=== PATIENT | male | born 1960 | race Caucasian/White ===

== ENCOUNTER 2020-06-23 02:34 | Inpatient (IN) | payer MEDICARE, SELFPAY ==
[2020-06-23] VITALS (55 sets, daily range): BP systolic 92–139; BP diastolic 50–85; PULSE 79–120; RESP 12–27; TEMP 36.9–37.4; O2SAT 89–99; BMI 35.5
--- NOTE | 2020-06-23 02:45 | XR_ITS ---
WS: [id number] XR chest 1V portable [id number] REASON FOR EXAM: Weakness FINDINGS: Moderate tortuosity and ectasia thoracic aorta. Cardiac enlargement. No active pulmonary parenchymal or pleural disease. Degenerative spondylosis in the mid and lower thoracic spine. XR/XR chest 1V portable [id number] IMPRESSION: No acute chest abnormality. Cardiomegaly and tortuous ectatic aorta.
--- NOTE | 2020-06-23 02:46 | ECG_ITS ---
[facility] Test Date: 2020-06-23 Pat Name: Renaldo Michel Department: Room: Gender: Male Plastic Surgery Nurse: : 1960 Requested By: Raven Mccullough Order Number: [id number] Arvind MD: CECI VALENCIA Measurements Intervals [place] Rate: 104 P: 16 SC: 124 QRS: 20 QRSD: 82 T: 66 QT: 347 QTc: 457 Interpretive Statements SINUS TACHYCARDIA ABNORMAL RHYTHM ECG Compared to ECG 04/18/2016 17:46:24 Sinus rhythm no longer present Electronically Signed On 06-23-2020 19:28:59 TEAM PSYCHOLOGIST by CECI VALENCIA [id number]
[2020-06-23] MEDS: famotidine 20 mg/2 mL INJ 40 MG IVP (03:26)
[2020-06-23] MEDS: ondansetron 2 mg/ML SDV 2 mL 4 MG IVP (03:29)
[2020-06-23] MEDS: pantoprazole 40 mg SDV 80 MG IVP (03:32)
[2020-06-23 03:44] LABS: Basophils # 0.1 10^3/uL (0.0-0.1); Basophils % 0.7 %; Eosinophils # 0.1 10^3/uL (0.0-0.8); Eosinophils % 0.4 %; Hematocrit 40.2 % (42.0-52.0); Hemoglobin 13.4 g/dL (11.7-16.6); Lymphocytes # 2.2 10^3/uL (0.8-4.8); Lymphocytes % 15.3 %; Mean Corpuscular HGB Conc 33.3 g/dL (30.0-36.0); Mean Corpuscular Hemoglobin 31.2 pg (28.0-34.0); Mean Corpuscular Volume 93.5 fL (80-94); Mean Platelet Volume 10.5 fL (7.4-10.4); Monocytes # 1.8 10^3/uL (0.2-0.9); Monocytes % 12.6 %; Neutrophils # 9.85 10^3/uL (1.8-7.7); Neutrophils % 70.3 %; Nucleated Red Blood Cells % 0 %; Platelet Count 356 10^3/cmm (130-400); Red Cell Distribution Width 17.3 % (12.1-15.1)
[2020-06-23 03:56] LABS: H. Pylori IgG Antibody Negative (Negative)
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
[2020-06-23 04:00] LABS: INR 1.46 (0.8-1.2)
[2020-06-23 04:01] LABS: Partial Thromboplastin Time 32.8 SECONDS (23.9-36.7)
[2020-06-23 04:04] LABS: Alanine Aminotransferase 29 U/L (0-41); Albumin Level 3.1 g/dL (3.5-5.2); Alkaline Phosphatase 233 IU/L (40-130); Anion Gap 17.3 (5-19); Aspartate Amino Transferase 61 U/L (0-40); Blood Urea Nitrogen 10 mg/dL (8-23); Calcium 8.4 mg/dL (8.5-10.5); Carbon Dioxide 25 mmol/L (22-29); Chloride 100 mmol/L (98-107); Creatine Phosphokinase 57 U/L (39-308); Globulin 3.1 g/dL (1.3-4.6); Glucose 133 mg/dL (65-115); Lipase 14 U/L (13-60); Osmolality Calculated 285 mOsm/kg (285-295); Potassium 5.3 mmol/L (3.5-5.1); Sodium 137 mmol/L (136-145); Total Bilirubin 1.4 mg/dL (0.15-1.2); Total Protein 6.2 g/dL (6.6-8.7)
[2020-06-23 04:06] LABS: Troponin(5th) Baseline 9 ng/L (0-15)
[2020-06-23 04:11] LABS: Gastricult Occult Blood Positive (Negative)
[2020-06-23] MEDS: iohexol 300 mg/mL 100 mL Btl IV (04:37)
[2020-06-23 04:46] LABS: Gastricult Occult PH 6.5 PH (1.5-3.5)
--- NOTE | 2020-06-23 04:46 | ECG_ITS ---
[facility] Test Date: 2020-06-23 Pat Name: Renaldo Michel Department: Room: Gender: Male Access Representative: : 1960 Requested By: Raven Mccullough Order Number: [id number] Arvind MD: CECI VALENCIA Measurements Intervals [place] Rate: 100 P: 81 GA: 152 QRS: 33 QRSD: 80 T: 53 QT: 351 QTc: 453 Interpretive Statements SINUS TACHYCARDIA ABNORMAL RHYTHM ECG Compared to ECG 06/23/2020 03:36:16 No significant changes Electronically Signed On 06-23-2020 19:33:15 GROUND SUPPORT EQUIPMENT FITTER by CECI VALENCIA [id number]
[2020-06-23] MEDS: cefTRIAXone 1,000 MG in sodium chloride 0.9% (plus) 50 ML 100 MG IV (05:23)
[2020-06-23] MEDS: piperacillin-tazobactam 3.375 GM in sodium chloride 0.9% (plus) 50 ML IV ×2 (05:26→20:42)
[2020-06-23] MEDS: pantoprazole 40 MG in sodium chloride 0.9% (plus) 100 ML 20 MG IV (05:36)
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
--- NOTE | 2020-06-23 06:22 | PM.HP ---
Providers/Chief Complaint Primary Care Provider: Travis Tracy DO Chief Complaint: vomiting blood History of Present Illness Renaldo Michel is a 59 year old male with a past medical history of hypertension, chronic alcoholism, liver cirrhosis, sleep apnea, tobacco abuse, COPD who presents to [facility] due to complaints of coffee-ground emesis and black tarry stools. Patient tells me that he is retired, he lives with his , he forgets the days as he is enjoying snf, he likes to drink, can drink more than 4 beer in 1 sitting, has had a hospitalization in April 2016 for alcohol intoxication. He does have radiographic evidence of alcoholic steatohepatitis with possible early cirrhosis, denies a history of esophageal varices, denies a history of ascites, he does state that his primary care provider referred him to a health services director at one point, however he failed to follow-up. Patient tells me that yesterday evening, he was getting ready to go to the shower, when he had an episode of coffee-ground emesis with black tarry stools. Denies lightheadedness, denies dizziness, denies chest pain, denies palpitations, denies presyncope or syncope. Patient did not want to come to the emergency room, however his who worked in [employer], advised him to come to [facility]. Here at [facility] patient had one episode of coffee-ground emesis, he is Gastroccult positive, blood pressure 110/58, has sinus tachycardia heart rate 108, on 3 L nasal cannula, no repeat episodes of coffee-ground emesis, patient has no particular complaints, abdomen is distended, feels tight. CT scan of his abdomen showed few gastric varices, no splenomegaly, portal vein is patent, splenic vein is patent, liver shows severe fatty change, CT scan did have incidental finding of hydrops of the appendix. Findings were discussed with Dr. Kennedy, who agreed to consult, will see the patient for upper GI bleed. Given his alcoholism, I am concerned for the possibility of variceal bleed, although he denies any dark blood, it is mainly black and tarry, seems like it is gastric in origin, or gastric ulcer, but given his alcoholism I am concerned for the possibility of variceal bleed. Currently on a Protonix drip, getting normal saline. Review of Systems Const: Denies: fever(s), chills, fatigue or malaise Eyes: Denies: change in vision or blurry vision ENMT: Denies: nasal congestion Resp: Denies: dyspnea, productive cough, non-productive cough or wheezing GI: Reports: abdominal pain, vomiting, coffee ground emesis and melena; Denies: nausea, diarrhea, constipation or hematochezia : Denies: flank pain, difficulty urinating, dysuria or urinary frequency Musc: Denies: neck pain or back pain Skin/Breast: Denies: rash Neuro: Denies: headache(s), dizziness or vertigo Psych: Denies: anxiety or depression Endo: Denies: polyuria or polydipsia Medications/Allergies Home Medications Medication Instructions Recorded Confirmed Last Taken Type potassium chloride 20 mEq 20 meq PO BID #180 tab 10/20/19 Unknown Rx tablet,extended release spironolactone 100 mg tablet 100 mg PO QAM #90 tab 10/20/19 Unknown Rx tamsulosin 0.4 mg capsule 0.4 mg PO DAILY #90 cap 10/20/19 Unknown Rx Allergies Allergy/AdvReac Type Severity Reaction Status Date / Time No Known Allergies Allergy Verified 10/20/19 10:54 PFSH Acute PFSH: Medical History (Updated 06/23/20 @ 06:29 by Jasiel Ramírez MD) Alcoholism Arthritis COPD (chronic obstructive pulmonary disease) Hypertension Liver cirrhosis EDITH (obstructive sleep apnea) Polysubstance abuse Surgical History H/O bilateral hip replacements Hx of exploratory laparotomy Family History (Updated 06/23/20 @ 06:28 by Jasiel Ramírez MD) Other Adopted Social History (Updated 06/23/20 @ 06:28 by Jasiel Ramírez MD) Smoking and tobacco status: current every day smoker Alcohol intake: current Alcohol intake frequency: 3 or more drinks per day Alcohol type: beer Substance/Drug Use: never Vitals/I&O/Wt Last Vital Signs Temp 98.4 F 06/23/20 02:34 Pulse 108 H 06/23/20 05:30 Resp 20 H 06/23/20 05:30 BP 110/58 06/23/20 05:30 Pulse Ox 98 06/23/20 05:30 Weight last 48 hrs Weight 99.79 kg Physical Exam Const: COMMON NORMALS: no acute distress and patient oriented x3 GENERAL APPEARANCE: cooperative and comfortable HENMT: COMMON NORMALS: normocephalic HEAD & SCALP: normocephalic Eye: COMMON NORMALS: Equal, round and reactive pupils present and EOMs intact bilaterally GENERAL EYE: appearance normal, both eyes and all related structures PUPIL: Yes Equal, round and reactive pupils present Neck/C-Spine: COMMON NORMALS: full ROM, no lymphadenopathy, no JVD and Thyroid normal THYROID: Thyroid normal Lymph: LYMPHATIC: no lymphadenopathy noted Resp: COMMON NORMALS: normal respiratory effort, No retractions, No use of accessory muscles and clear to auscultation bilaterally AUSCULTATION: clear to auscultation bilaterally Cardio: COMMON NORMALS: no JVD, regular rate, regular rhythm, S1 normal heart sound present, S2 normal heart sound present, No gallops present (Cardio), No clicks present (Cardio) and No murmurs present (Cardio) RATE: regular rate RHYTHM: regular rhythm HEART SOUNDS: S1 normal heart sound present and S2 normal heart sound present GI: COMMON NORMALS: Normal to inspection, nondistended, normoactive bowel sounds present, Soft to palpation, non-tender and No hepatosplenomegaly present INSPECTION: Yes abdominal distension PALPATION: No Tenderness to palpation present (GI), No Guarding due to palpation present (GI), No Rigid due to palpation and Yes No hepatosplenomegaly present Extremity: COMMON NORMALS: normal to inspection, full ROM and no pedal edema Neuro: COMMON NORMALS: patient oriented x3, CN's II-XII intact bilaterally, moves all extremities and no focal motor deficits Psych: COMMON NORMALS: mental status grossly normal, Normal thought process present and cooperative THOUGHT PROCESS: Normal thought process present Data : 06/23/20 03:21 06/23/20 03:21 A&P Assessment and plan (1) Acute upper gastrointestinal bleeding: -Coffee-ground emesis, with black tarry stools, Gastroccult positive, 1 episode of black tarry emesis in the ER -Hemoglobin is 13.4 -Blood pressure 110/50, pulse 108 -Has a history of alcoholism, severe fatty liver disease, gastric varices -Patient is alert oriented x3 PLAN: -Admit to ICU -Monitor hemodynamics closely -Keep n.p.o. -General surgery on consult -Repeat hemoglobin at 8 AM, if hemoglobin drops, will consider transfusing -INR is prolonged at 1.4, will give 1 unit FFP -Continue Protonix drip -Continue Carafate -I have added on octreotide drip, given the concern for possible esophageal variceal bleed -N.p.o. -SCDs for DVT prophylaxis Status: Acute (2) Liver cirrhosis: -CT scan shows severe fatty change, suspicious for cirrhosis -Significant alcoholism history -INR 1.46 -T bili 1.4 -AST 61 -Abdomen is quite distended, will do liver ultrasound, highly suspicious for ascites Status: Acute (3) Hypertension: Hold blood pressure medication Status: Acute (4) EDITH (obstructive sleep apnea): Status: Acute (5) COPD (chronic obstructive pulmonary disease): Status: Acute (6) Appendix disease: -CT scan of the abdomen shows hydropic appendix, patient does not really have right lower quadrant pain, no significant white count, inflammatory markers pending, start Zosyn Status: Acute (7) Alcoholism: CIWA protocol Status: Acute Attestations Medical Necessity Statement*: Patient was hospitalization, inpatient, greater than 2 midnights, for acute upper GI bleed Coding Level of Care Code Acute Benefits Consultant for [facility] Fwd Diagnoses Acute upper gastrointestinal bleeding K92.2 Liver cirrhosis K74.60 Hypertension I10 EDITH (obstructive sleep apnea) G47.33 COPD (chronic obstructive pulmonary disease) J44.9 Appendix disease K38.9 Alcoholism F10.20
[2020-06-23 06:55] LABS: Troponin 5 2HR 8.81 ng/L (0-15)
[2020-06-23 07:21] LABS: Troponin 5 2HR Delta -0.19 ABS# (0-10)
[2020-06-23 07:25] LABS: Urine Appearance Clear (CLEAR); Urine Color Yellow (Yellow)
[2020-06-23 07:26] LABS: Add Urine Culture? No; Add Urine Microscopic? YES; Bacteria Urine TRACE /hpf; Bilirubin Urine Neg (Negative); Blood Urine Neg (Negative); Glucose Urine UA Norm (Normal); Ketones Urine 1+ (Negative); Leukocyte Esterase Urine Negative (Negative); Mucus Urine 1+ /hpf; Nitrate Urine Negative (Negative); Protein Urine Trace (Negative); Squamous Epithelial Cell Urine 0-4 /hpf (0-5); Sulfosalicylic Acid Urine Negative (Negative); Urobilinogen Urine 1 mg/dL (Negative); pH Urine 8 (5-7)
[2020-06-23 07:31] LABS: Basophils # 0.1 10^3/uL (0.0-0.1); Basophils % 0.5 %; Eosinophils % 0.1 %; Hematocrit 39.2 % (42.0-52.0); Hemoglobin 12.8 g/dL (11.7-16.6); Lymphocytes # 2.5 10^3/uL (0.8-4.8); Lymphocytes % 15.3 %; Mean Corpuscular HGB Conc 32.7 g/dL (30.0-36.0); Mean Corpuscular Hemoglobin 30.8 pg (28.0-34.0); Mean Corpuscular Volume 94.5 fL (80-94); Mean Platelet Volume 10.1 fL (7.4-10.4); Monocytes # 2.2 10^3/uL (0.2-0.9); Monocytes % 13.5 %; Neutrophils # 11.29 10^3/uL (1.8-7.7); Neutrophils % 69.9 %; Nucleated Red Blood Cells % 0 %; Platelet Count 329 10^3/cmm (130-400); Red Blood Count 4.15 10^6/uL (4.1-5.3); Red Cell Distribution Width 17.2 % (12.1-15.1); White Blood Count 16.1 10^3/uL (4.0-10.0)
[2020-06-23 07:37] LABS: C Reactive Protein 8.7 mg/L (0.0-4.9)
[2020-06-23 07:52] LABS: Lactic Sepsis W/Reflex 3.3 mmol/L (0.5-2.2)
[2020-06-23] MEDS: lactated ringers 1,000 ML 100 ML IV (08:33)
[2020-06-23] MEDS: thiamine 100 mg Tablet PO (08:44)
[2020-06-23] MEDS: sucralfate 1 gm Tablet PO ×2 (08:44→19:33)
[2020-06-23] MEDS: folic acid 1 mg Tablet PO (08:44)
[2020-06-23] MEDS: octreotide 500 MCG in sodium chloride 0.9% (100 ml) 100 ML 10.1 MCG IV ×2 (08:49→19:00)
[2020-06-23 09:05] LABS: Troponin 5 6HR 9.43 ng/L (0-15); Troponin 5 6HR Delta 0.43 ng/L (0-12)
[2020-06-23 09:17] LABS: Reflex Lactate Order REFLEX LACTIC ORDERD
[2020-06-23 11:26] LABS: Lactic Acid level (Lactate) 2.2 mmol/L (0.5-2.2)
[2020-06-23] MEDS: multivitamin therapeutic Tablet 1 TAB PO (11:37)
--- NOTE | 2020-06-23 13:05 | P.ANESASSM_ITS ---
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 Social: Social History: Alcohol and Tobacco Exam: Pre-Anes Outpt Exam: alert, oriented x 3, clear to auscultation bilaterally and regular rate & rhythm Airway: MP: 4 Dentition: Other (none) Pulmonary: Pulmonary: COPD and Sleep apnea CV/HEM: CV/HEM: Anemia Hepatic: Comments: severe fatty liver - heavy alcohol use GI: Comments: UPper GI bleed, coffee ground emesis last vomited this mornig Metabolic: Metabolic: Morbid obesity Comments: potassium 5.3 Anesthetic Plan: ASA status: 3 Anesthesia: General Risk of > 500 ml blood loss (7ml/kg in children): No Other Pertinent Information: concern for variceal bleed Meds/Allergies Current Medications: Current Medications Generic Name Dose Route Start Last Admin Trade Name Scott PRN Reason Stop Dose Admin Folic Acid 1 mg 06/23/20 09:00 06/23/20 08:44 Folic Acid PO 1 mg DAILY FELICIANO Administration Octreotide Acetate 500 mcg/ 101 mls @ 10.1 ml s/hr 06/23/20 08:30 06/23/20 08:49 Sodium Chloride IV 50 mcg/hr .Q10H FELICIANO 10.1 mls/hr Administration 50 MCG/HR Lactated Ringer's 1,000 mls @ 100 m ls/hr 06/23/20 06:15 06/23/20 08:33 Lactated Ringers IV 100 mls/hr .Q10H FELICIANO Administration Multivitamins Ther apeutic 1 tab 06/23/20 09:00 06/23/20 11:37 Multivitamin Tab PO 1 tab DAILY FELICIANO Administration Sucralfate 1 gm 06/23/20 08:30 06/23/20 08:44 Carafate PO 1 gm BIDAC FELICIANO Administration Thiamine Mononitra te 100 mg 06/23/20 09:00 06/23/20 08:44 Vitamin B-1 PO 100 mg DAILY FELICIANO Administration PFSH Anesthesia PFSH: Medical History (Updated 06/23/20 @ 06:29 by Jasiel Ramírez MD) Alcoholism Arthritis COPD (chronic obstructive pulmonary disease) Hypertension Liver cirrhosis EDITH (obstructive sleep apnea) Polysubstance abuse Surgical History H/O bilateral hip replacements Hx of exploratory laparotomy Family History (Updated 06/23/20 @ 06:28 by Jasiel Ramírez MD) Other Adopted Social History (Updated 06/23/20 @ 06:28 by Jasiel Ramírez MD) Smoking and tobacco status: current every day smoker Alcohol intake: current Alcohol intake frequency: 3 or more drinks per day Alcohol type: beer Substance/Drug Use: never Data Anesthesia CBC & Chem 7: 06/23/20 07:26 06/23/20 03:21 Other Labs: Laboratory Results - last 48 hr 06/23/20 06/23/20 06/23/20 03:21 03:21 03:21 WBC 14.0 H RBC 4.30 Hgb 13.4 Hct 40.2 L MCV 93.5 MCH 31.2 MCHC 33.3 RDW 17.3 H Plt Count 356 MPV 10.5 H Neut % (Auto) 70.3 Lymph % (Auto) 15.3 [place] % (Auto) 12.6 Eos % (Auto) 0.4 Baso % (Auto) 0.7 Neut # (Auto) 9.85 H Lymph # (Auto) 2.2 [place] # (Auto) 1.8 H Eos # (Auto) 0.1 Baso # (Auto) 0.1 Nucleated RBC % (auto) 0 Nucleated RBCs # 0.0 PT 18.20 H INR 1.46 H APTT 32.8 Sodium 137 Potassium 5.3 H Chloride 100 Carbon Dioxide 25 Anion Gap 17.3 BUN 10 Creatinine 0.5 L GFR Calculation 169.0 H Glucose 133 H Calculated Osmolality 285 Lactic Acid Lactic Acid (Sepsis) Calcium 8.4 L Magnesium 2.0 Total Bilirubin 1.4 H AST 61 H ALT 29 Alkaline Phosphatase 233 H Creatine Kinase 57 Troponin T Baseline Troponin T 120 Minute Delta Troponin T Troponin T Hi Sens 6Hr Troponin T Hi Sens 6Hr Delta C-Reactive Protein Total Protein 6.2 L Albumin 3.1 L Globulin 3.1 Lipase 14 Procalcitonin Urine Color Urine Appearance Urine pH Ur Specific [place] Urine Protein Urine Glucose (UA) Urine Ketones Urine Blood Urine Nitrate Urine Bilirubin Prot Sulfosalicylic Acd Urine Urobilinogen Ur Leukocyte Esterase Urine RBC Urine WBC Ur Squamous Epith Cells Amorphous Sediment Urine Bacteria Urine Mucus Gastric Occult Blood H. pylori IgG Antibody Blood Type Rho(D) Type 06/23/20 06/23/20 06/23/20 03:21 03:21 03:21 WBC RBC Hgb Hct MCV MCH MCHC RDW Plt Count MPV Neut % (Auto) Lymph % (Auto) [place] % (Auto) Eos % (Auto) Baso % (Auto) Neut # (Auto) Lymph # (Auto) [place] # (Auto) Eos # (Auto) Baso # (Auto) Nucleated RBC % (auto) Nucleated RBCs # PT INR APTT Sodium Potassium Chloride Carbon Dioxide Anion Gap BUN Creatinine GFR Calculation Glucose Calculated Osmolality Lactic Acid Lactic Acid (Sepsis) Calcium Magnesium Total Bilirubin AST ALT Alkaline Phosphatase Creatine Kinase Troponin T Baseline 9 Troponin T 120 Minute Delta Troponin T Troponin T Hi Sens 6Hr Troponin T Hi Sens 6Hr Delta C-Reactive Protein 8.7 H Total Protein Albumin Globulin Lipase Procalcitonin 0.20 Urine Color Urine Appearance Urine pH Ur Specific [place] Urine Protein Urine Glucose (UA) Urine Ketones Urine Blood Urine Nitrate Urine Bilirubin Prot Sulfosalicylic Acd Urine Urobilinogen Ur Leukocyte Esterase Urine RBC Urine WBC Ur Squamous Epith Cells Amorphous Sediment Urine Bacteria Urine Mucus Gastric Occult Blood H. pylori IgG Antibody Negative Blood Type Rho(D) Type 06/23/20 06/23/20 06/23/20 03:33 05:40 06:18 WBC RBC Hgb Hct MCV MCH MCHC RDW Plt Count MPV Neut % (Auto) Lymph % (Auto) [place] % (Auto) Eos % (Auto) Baso % (Auto) Neut # (Auto) Lymph # (Auto) [place] # (Auto) Eos # (Auto) Baso # (Auto) Nucleated RBC % (auto) Nucleated RBCs # PT INR APTT Sodium Potassium Chloride Carbon Dioxide Anion Gap BUN Creatinine GFR Calculation Glucose Calculated Osmolality Lactic Acid Lactic Acid (Sepsis) Calcium Magnesium Total Bilirubin AST ALT Alkaline Phosphatase Creatine Kinase Troponin T Baseline Troponin T 120 Minute 8.81 Delta Troponin T -0.19 L Troponin T Hi Sens 6Hr Troponin T Hi Sens 6Hr Delta C-Reactive Protein Total Protein Albumin Globulin Lipase Procalcitonin Urine Color Yellow Urine Appearance Clear Urine pH 8 H Ur Specific [place] 1.010 Urine Protein Trace Urine Glucose (UA) Norm Urine Ketones 1+ H Urine Blood Neg Urine Nitrate Negative Urine Bilirubin Neg Prot Sulfosalicylic Acd Negative Urine Urobilinogen 1 H Ur Leukocyte Esterase Negative Urine RBC None Urine WBC None Ur Squamous Epith Cells 0-4 H Amorphous Sediment Not Reportable Urine Bacteria Trace Urine Mucus 1+ Gastric Occult Blood Positive H H. pylori IgG Antibody Blood Type Rho(D) Type 06/23/20 06/23/20 06/23/20 07:21 07:26 08:30 WBC 16.1 H RBC 4.15 Hgb 12.8 Hct 39.2 L MCV 94.5 H MCH 30.8 MCHC 32.7 RDW 17.2 H Plt Count 329 MPV 10.1 Neut % (Auto) 69.9 Lymph % (Auto) 15.3 [place] % (Auto) 13.5 Eos % (Auto) 0.1 Baso % (Auto) 0.5 Neut # (Auto) 11.29 H Lymph # (Auto) 2.5 [place] # (Auto) 2.2 H Eos # (Auto) 0.0 Baso # (Auto) 0.1 Nucleated RBC % (auto) 0 Nucleated RBCs # 0.0 PT INR APTT Sodium Potassium Chloride Carbon Dioxide Anion Gap BUN Creatinine GFR Calculation Glucose Calculated Osmolality Lactic Acid 3.3 H Lactic Acid (Sepsis) Calcium Magnesium Total Bilirubin AST ALT Alkaline Phosphatase Creatine Kinase Troponin T Baseline Troponin T 120 Minute Delta Troponin T Troponin T Hi Sens 6Hr 9.43 Troponin T Hi Sens 6Hr Delta 0.43 C-Reactive Protein Total Protein Albumin Globulin Lipase Procalcitonin Urine Color Urine Appearance Urine pH Ur Specific [place] Urine Protein Urine Glucose (UA) Urine Ketones Urine Blood Urine Nitrate Urine Bilirubin Prot Sulfosalicylic Acd Urine Urobilinogen Ur Leukocyte Esterase Urine RBC Urine WBC Ur Squamous Epith Cells Amorphous Sediment Urine Bacteria Urine Mucus Gastric Occult Blood H. pylori IgG Antibody Blood Type Rho(D) Type 06/23/20 06/23/20 08:30 10:58 WBC RBC Hgb Hct MCV MCH MCHC RDW Plt Count MPV Neut % (Auto) Lymph % (Auto) [place] % (Auto) Eos % (Auto) Baso % (Auto) Neut # (Auto) Lymph # (Auto) [place] # (Auto) Eos # (Auto) Baso # (Auto) Nucleated RBC % (auto) Nucleated RBCs # PT INR APTT Sodium Potassium Chloride Carbon Dioxide Anion Gap BUN Creatinine GFR Calculation Glucose Calculated Osmolality Lactic Acid Lactic Acid (Sepsis) 2.2 Calcium Magnesium Total Bilirubin AST ALT Alkaline Phosphatase Creatine Kinase Troponin T Baseline Troponin T 120 Minute Delta Troponin T Troponin T Hi Sens 6Hr Troponin T Hi Sens 6Hr Delta C-Reactive Protein Total Protein Albumin Globulin Lipase Procalcitonin Urine Color Urine Appearance Urine pH Ur Specific [place] Urine Protein Urine Glucose (UA) Urine Ketones Urine Blood Urine Nitrate Urine Bilirubin Prot Sulfosalicylic Acd Urine Urobilinogen Ur Leukocyte Esterase Urine RBC Urine WBC Ur Squamous Epith Cells Amorphous Sediment Urine Bacteria Urine Mucus Gastric Occult Blood H. pylori IgG Antibody Blood Type O Positive Rho(D) Type Positive Cardiac Studies: No Data to Display
[2020-06-23 13:30] LABS: Hemoglobin 11.6 g/dL (11.7-16.6)
--- NOTE | 2020-06-23 14:18 | PM.CONSULT ---
Providers/Reason For Consult Consulting Physican/Specialty*: Dr. Hutson Reason for Consult*: Coffee-ground emesis Attending Physician: Susan Hutson MD Primary Care Provider: Travis Tracy DO History of Present Illness History of Present Illness Renaldo Michel is a 59 year old male who presented to the ER last night with complaints of coffee-ground emesis and black stools. Patient has a longstanding history of chronic alcoholism. He denies any significant abdominal pain, nausea or vomiting until this episode of coffee-ground emesis and black stools last night. No similar episodes in the past. Patient denies any history of peptic ulcer disease. He had a CT abdomen pelvis showed showing gastric varices and changes consistent with liver cirrhosis. Patient denies any fresh blood emesis and he was started on Protonix drip in the ER Review of Systems General: Reports: 10 or more systems reviewed and unremarkable except in HPI and below Meds/Allergies Home Medications and Allergies Home Medications Medication Instructions Recorded Confirmed Last Taken Type potassium chloride 20 mEq 20 meq PO BID #180 tab 10/20/19 06/23/20 Unknown Rx tablet,extended release spironolactone 100 mg tablet 100 mg PO QAM #90 tab 10/20/19 06/23/20 Unknown Rx tamsulosin 0.4 mg capsule 0.4 mg PO DAILY #90 cap 10/20/19 06/23/20 Unknown Rx Vitamin B-12 1 tab PO DAILY 06/23/20 06/23/20 Unknown History [id number]-lycopen-lutein 1 tab PO DAILY 06/23/20 06/23/20 Unknown History [Centrum Silver Men] Allergies Allergy/AdvReac Type Severity Reaction Status Date / Time No Known Allergies Allergy Verified 06/23/20 08:28 Current Medications Current Medications Generic Name Dose Route Start Last Admin Trade Name Freq PRN Reason Stop Dose Admin Folic Acid 1 mg 06/23/20 09:00 06/23/20 08:44 Folic Acid PO 1 mg DAILY FELICIANO Administration Octreotide Acetate 500 mcg/ 101 mls @ 10.1 mls/hr 06/23/20 08:30 06/23/20 08:49 Sodium Chloride IV 50 mcg/hr .Q10H FELICIANO 10.1 mls/hr Administration 50 MCG/HR Lactated Ringer's 1,000 mls @ 100 mls/hr 06/23/20 06:15 06/23/20 08:33 Lactated Ringers IV 100 mls/hr .Q10H FELICIANO Administration Multivitamins Therapeutic 1 tab 06/23/20 09:00 06/23/20 11:37 Multivitamin Tab PO 1 tab DAILY FELICIANO Administration Sucralfate 1 gm 06/23/20 08:30 06/23/20 08:44 Carafate PO 1 gm BIDAC FELICIANO Administration Thiamine Mononitrate 100 mg 06/23/20 09:00 06/23/20 08:44 Vitamin B-1 PO 100 mg DAILY FELICIANO Administration PFSH Acute PFSH: Medical History (Updated 06/23/20 @ 16:01 by Zay Kennedy MD) Alcoholism Arthritis COPD (chronic obstructive pulmonary disease) Gastric varices Hypertension Liver cirrhosis EDITH (obstructive sleep apnea) Surgical History H/O bilateral hip replacements Hx of exploratory laparotomy Family History Other Adopted Social History Smoking and tobacco status: current every day smoker Alcohol intake: current Alcohol intake frequency: 3 or more drinks per day Alcohol type: beer Substance/Drug Use: never Vitals/I&O/Wt Last Vital Signs Temp 98.4 F 06/23/20 02:34 Pulse 88 06/23/20 12:30 Resp 20 H 06/23/20 12:30 BP 110/70 06/23/20 12:30 Pulse Ox 97 06/23/20 12:30 06/22/20 06/23/20 06/23/20 22:59 06:59 14:59 Intake Total 430 / 430 Balance 430 / 430 Weight last 48 hrs Weight 220 lb Physical Exam Narrative: EXAM NARRATIVE: HEENT: Normocephalic Eye: Sclera /conjunctiva normal Abdomen: Soft to palpation Neurological: Oriented to place person and time Skin: Intact, no lesions appreciated on gross exam A&P Assessment and plan (1) Acute upper gastrointestinal bleedin-year-old gentleman who presented to the ER with coffee-ground emesis with a longstanding history of alcoholism and polysubstance drug abuse. Patient is currently hemodynamically stable. Continue Protonix drip Plan for EGD under [facility] Procedure, risks, benefits and alternatives have been discussed with the patient who wishes to proceed with surgery. Status: Acute Coding Level of Care Code Acute Director Decision Support for [facility] Fwd Diagnoses Acute upper gastrointestinal bleeding K92.2
--- NOTE | 2020-06-23 14:31 | ANE.PACU2 ---
Inpatient post-anesthesia follow up: Airway intact: Yes Vital signs: Temperature 98.4 F Pulse Rate [Monito r] 107 Pulse Rate [Orthos tatic 110 Standing] Pulse Rate [Orthos tatic 110 Sitting] Pulse Rate [Orthos tatic Lying] 110 Pulse Rate 88 Respiratory Rate 20 Blood Pressure [Or thostatic 99/65 Standing] Blood Pressure [Or thostatic 104/74 Sitting] Blood Pressure [Or thostatic 117/83 Lying] Blood Pressure [Le ft Arm] 114/72 Blood Pressure 110/70 Pulse Oximetry 97 Oxygen Delivery Me thod Nasal Cannula Oxygen Flow Rate 3 Fraction of Inspir ed Oxygen Hydration adequate: Yes Nausea and vomiting: No Pain level: 2 Mental status: Baseline
--- NOTE | 2020-06-23 15:04 | PC.NURSE ---
has cellphone and clothing.
--- NOTE | 2020-06-23 19:25 | PC.NURSE ---
some meds given in other depts. antib. missed after he got here.
--- NOTE | 2020-06-23 20:24 | P.PN_ITS ---
Subjective Subjective: Interval history: Assumed care of this patient earlier in the day, seen once he got to the ICU following EGD done earlier this morning by Dr. Kennedy. Per my discussion with him he has evidence of gastric varices and diffuse inflammation. Protonix drip and octreotide drip are both running. Patient is resting comfortably in bed, denies abdominal discomfort at this time and reports that he would like something to eat or drink. Medications: Reviewed: Yes Medication Review Details: Active Medications Generic Name Dose Route Start Last Admin Trade Name Freq PRN Reason Stop Dose Admin Acetaminophen 650 mg 06/23/20 06:14 Tylenol PO Q6H PRN Mild/Mod Pain Or Temp >/= 101 Albuterol Sulfate 2 puff 06/23/20 16:09 Ventolin INHALATION Q4H.RESPIRATORY P RN SHORTNESS OF CARIDAD TH Folic Acid 1 mg 06/23/20 09:00 06/23/20 08:44 Folic Acid PO 1 mg DAILY FELICIANO Administration Octreotide Acetate 500 mcg/ 101 mls @ 10.1 ml s/hr 06/23/20 08:30 06/23/20 19:00 Sodium Chloride IV 50 mcg/hr .Q10H FELICIANO 10.1 mls/hr Administration 50 MCG/HR Lactated Ringer's 1,000 mls @ 100 m ls/hr 06/23/20 06:15 06/23/20 19:30 Lactated Ringers IV Not Given .Q10H FELICIANO Piperacillin Sod/T azobactam 50 mls @ 12.5 mls /hr 06/23/20 13:30 06/23/20 19:29 Sod 3.375 gm/ So dium Chloride IV Not Given Q8H FELICIANO Protocol As Directed Lorazepam 2 mg 06/23/20 06:14 Ativan IM PROTOCOL PRN ALCOWD Protocol Lorazepam 2 mg 06/23/20 06:14 Ativan PO PROTOCOL PRN WITHDRAWAL Protocol Multivitamins Ther apeutic 1 tab 06/23/20 09:00 06/23/20 11:37 Multivitamin Tab PO 1 tab DAILY FELICIANO Administration Ondansetron HCl 4 mg 06/23/20 06:14 Zofran IVP Q8H PRN vomiting, or N/V if npo Pantoprazole Sodiu m 40 mg 06/24/20 06:00 Protonix IVP Q12H FELICIANO Sucralfate 1 gm 06/23/20 08:30 06/23/20 19:33 Carafate PO 1 gm BIDAC FELICIANO Administration Thiamine Mononitra te 100 mg 06/23/20 09:00 06/23/20 08:44 Vitamin B-1 PO 100 mg DAILY FELICIANO Administration No Known Allergies Allergy (Verified 06/23/20 08:28) Vitals/I&O/Wt Last Vital Signs Temp 99.4 F 06/23/20 15:15 Pulse 89 06/23/20 19:37 Resp 18 06/23/20 19:37 BP 92/50 06/23/20 18:30 Pulse Ox 95 06/23/20 19:37 06/23/20 06/23/20 06/23/20 06:59 14:59 22:59 Intake Total 430 / 430 1101 / 1531 Balance 430 / 430 1101 / 1531 Weight last 48 hrs Weight 99.79 kg Physical Exam Const: COMMON NORMALS: no acute distress, patient oriented x3 and alert G ENERAL APPEARANCE: cooperative and comfortable ORIENTATION/CONSCIOUSNESS: Yes awake HENMT: COMMON NORMALS: normocephalic, atraumatic, hearing grossly normal bilaterally and moist oral mucous membranes HEAD & SCALP: normocephalic and atraumatic NOSE: Other nasal findings present (Bulbous nose) Eye: COMMON NORMALS: Equal, round and reactive pupils present, EOMs intact bilaterally and conjunctivae normal CONJUNCTIVA: Yes conjunctivae normal PUPIL: Yes Equal, round and reactive pupils present Neck/C-Spine: COMMON NORMALS: full ROM GENERAL: Yes normal visual inspecti on and Yes trachea midline Resp: COMMON NORMALS: normal respiratory effort, No retractions, No use of accessory muscles and clear to auscultation bilaterally EFFORT & INSPECTION: Yes able to speak in complete sentences, Yes symmetric chest movement and No tachypneic AUSCULTATION: clear to auscultation bilaterally OTHER: -on 4 L NC Cardio: COMMON NORMALS: regular rate, regular rhythm, S1 normal heart sound present, S2 normal heart sound present and No murmurs present (Cardio) RATE: regular rate RHYTHM: regular rhythm HEART SOUNDS: S1 normal heart sound present and S2 normal heart sound present GI: COMMON NORMALS: Normal to inspection, nondistended, normoactive bowel sounds present, Soft to palpation and non-tender INSPECTION: Yes central obesity PALPATION: Yes Soft to palpation Extremity: COMMON NORMALS: normal to inspection, full ROM and no clubbing, cyanosis or edema; negative for no pedal edema Neuro: COMMON NORMALS: patient oriented x3, moves all extremities, no focal motor deficits and no sensory deficits noted SENSORIUM/ORIENTATION: Yes alert Psych: COMMON NORMALS: mental status grossly normal, Normal thought process present, cooperative, normal affect and speech normal SPEECH: Yes normal speech THOUGHT PROCESS: Normal thought process present Skin: COMMON NORMALS: no rashes or lesions noted, no jaundice, no petechiae and no mottling GENERAL SKIN EXAM: no rashes or lesions noted Data : 06/23/20 12:01 06/23/20 03:21 A&P Assessment and plan (1) Acute upper gastrointestinal bleeding: -Presented with complaints of coffee-ground emesis and black tarry stools -Slight drop in hemoglobin part of which could be dilutional, continue to monitor every 6 hours -now s/p EGD showing grade C esophagitis, esophageal varices; done earlier today by Dr. Kennedy -On PPI drip and octreotide drip -Continue to monitor vital signs -Currently n.p.o. -Received 1 bag of FFPs due to INR elevation -monitor for further bleeding -CT A/P shows hydrops of appendix, severe fatty liver, right liver lobe calcifications, few varices; on empiric Zosyn Status: Acute (2) COPD (chronic obstructive pulmonary disease): -not oxygen dependent at baseline -on 4 L NC currently -continue to monitor respiratory status -CXR unremarkable -chronic smoker Status: Chronic Qualifiers: COPD type: unspecified COPD Qualified Code(s): J44.9 - Chronic obstructive pulmonary disease, unspecified (3) EDITH (obstructive sleep apnea): Status: Chronic (4) Hypertension: -continue to monitor vital signs Status: Chronic Qualifiers: Hypertension type: essential hypertension Qualified Code(s): I10 - Essential (primary) hypertension (5) Liver cirrhosis: -still actively drinking EtOH -liver US: Grossly enlarged liver with portal venous hypertension -CT A/P: hydrops of appendix, severe fatty liver, right liver lobe calcifications, few varices -noted elevated T.bili, AST, ALP Status: Acute Qualifiers: Hepatic cirrhosis type: alcoholic cirrhosis Ascites presence: without ascites Qualified Code(s): K70.30 - Alcoholic cirrhosis of liver without ascites Additional A&P Information -Morbid obesity: BMI-36 kg/m2 -EtOH abuse; on CIWA protocol, thiamine, folic acid, MVI -BPH; on tamsulosin -GI ppx with PPI -DVT ppx with SCDs; no AC due to bleeding -Dispo: home -Code status: FULL code -ICU care due to need for continued close monitoring in light of acute upper GI bleed Attestations Medical Necessity Statement*: Patient requires hospitalization for continued management of acute upper GI bleed s/p EGD, needs continued monitoring of hemo globin. Time Spent in Patient Care: 16 - 35 minutes (>than 50% of time spent in counselling and/or direct pt care on unit) . Coding Level of Care Code Acute Copy Director for Chg Fwd Diagnoses Acute upper gastrointestinal bleeding K92.2 COPD (chronic obstructive pulmonary disease) J44.9 COPD type: unspecified COPD EDITH (obstructive sleep apnea) G47.33 Hypertension I10 Hypertension type: essential hypertension Liver cirrhosis K70.30 Hepatic cirrhosis type: alcoholic cirrhosis Ascites presence: without ascites
[2020-06-23 23:06] LABS: Hematocrit 34.7 % (42.0-52.0); Hemoglobin 10.9 g/dL (11.7-16.6)
[2020-06-24] VITALS (22 sets, daily range): BP systolic 87–113; BP diastolic 48–80; PULSE 69–96; RESP 13–23; TEMP 36.6–37.1; O2SAT 92–96
[2020-06-24] MEDS: lactated ringers 1,000 ML 100 ML IV ×2 (01:40→13:32)
[2020-06-24 04:56] LABS: Basophils # 0.1 10^3/uL (0.0-0.1); Eosinophils # 0.8 10^3/uL (0.0-0.8); Eosinophils % 5.4 %; Hematocrit 32.9 % (42.0-52.0); Hemoglobin 10.7 g/dL (11.7-16.6); Lymphocytes # 2.3 10^3/uL (0.8-4.8); Lymphocytes % 16.6 %; Mean Corpuscular HGB Conc 32.5 g/dL (30.0-36.0); Mean Corpuscular Hemoglobin 31.3 pg (28.0-34.0); Mean Corpuscular Volume 96.2 fL (80-94); Mean Platelet Volume 10.5 fL (7.4-10.4); Monocytes # 1.4 10^3/uL (0.2-0.9); Monocytes % 10.1 %; Neutrophils # 9.24 10^3/uL (1.8-7.7); Neutrophils % 66.4 %; Nucleated Red Blood Cells % 0 %; Platelet Count 289 10^3/cmm (130-400); Red Blood Count 3.42 10^6/uL (4.1-5.3); Red Cell Distribution Width 17.3 % (12.1-15.1); White Blood Count 13.9 10^3/uL (4.0-10.0)
[2020-06-24] MEDS: octreotide 500 MCG in sodium chloride 0.9% (100 ml) 100 ML 10.1 MCG IV (05:06)
[2020-06-24 05:17] LABS: Alanine Aminotransferase 20 U/L (0-41); Albumin Level 2.6 g/dL (3.5-5.2); Alkaline Phosphatase 165 IU/L (40-130); Aspartate Amino Transferase 47 U/L (0-40); Blood Urea Nitrogen 12 mg/dL (8-23); Calcium 8.2 mg/dL (8.5-10.5); Carbon Dioxide 32 mmol/L (22-29); Chloride 102 mmol/L (98-107); Globulin 2.7 g/dL (1.3-4.6); Glucose 135 mg/dL (65-115); Magnesium 2.1 mg/dL (1.7-2.3); Osmolality Calculated 292 mOsm/kg (285-295); Phosphorus 2.9 mg/dL (2.5-4.5); Sodium 140 mmol/L (136-145); Total Bilirubin 2.1 mg/dL (0.15-1.2); Total Protein 5.3 g/dL (6.6-8.7)
[2020-06-24] MEDS: piperacillin-tazobactam 3.375 GM in sodium chloride 0.9% (plus) 50 ML IV ×2 (06:10→13:33)
[2020-06-24] MEDS: sucralfate 1 gm Tablet PO ×2 (06:11→17:54)
[2020-06-24] MEDS: pantoprazole 40 mg SDV IVP ×2 (06:11→17:56)
--- NOTE | 2020-06-24 08:05 | ANE.PACU2 ---
Inpatient post-anesthesia follow up: Airway intact: Yes Vital signs: Temperature 98.2 F Pulse Rate [Monito r] 107 Pulse Rate [Orthos tatic 110 Standing] Pulse Rate [Orthos tatic 110 Sitting] Pulse Rate [Orthos tatic Lying] 110 Pulse Rate 70 Respiratory Rate 21 Blood Pressure [Or thostatic 99/65 Standing] Blood Pressure [Or thostatic 104/74 Sitting] Blood Pressure [Or thostatic 117/83 Lying] Blood Pressure [Le ft Arm] 114/72 Blood Pressure 96/59 Pulse Oximetry 94 Oxygen Delivery Me thod Nasal Cannula Oxygen Flow Rate 2 Fraction of Inspir ed Oxygen Hydration adequate: Yes Nausea and vomiting: No Pain level: 2 Mental status: Baseline
--- NOTE | 2020-06-24 08:16 | P.PN_ITS ---
Subjective Subjective: Interval history: Had 200 mL urine output overnight, remains on PPI and octreotide drips, afebrile, hemodynamically stable. Stable Hg, decreased leukocytosis. Sitting up at the edge of the bed, reports being hungry. Able to sleep through the night, no CIWA protocol meds needed. Medications: Reviewed: Yes Medication Review Details: Active Medications Generic Name Dose Route Start Last Admin Trade Name Freq PRN Reason Stop Dose Admin Acetaminophen 650 mg 06/23/20 06:14 Tylenol PO Q6H PRN Mild/Mod Pain Or Temp >/= 101 Albuterol Sulfate 2 puff 06/23/20 16:09 Ventolin INHALATION Q4H.RESPIRATORY P RN SHORTNESS OF CARIDAD TH Folic Acid 1 mg 06/23/20 09:00 06/23/20 08:44 Folic Acid PO 1 mg DAILY FELICIANO Administration Octreotide Acetate 500 mcg/ 101 mls @ 10.1 ml s/hr 06/23/20 08:30 06/24/20 05:06 Sodium Chloride IV 50 mcg/hr .Q10H FELICIANO 10.1 mls/hr Administration 50 MCG/HR Lactated Ringer's 1,000 mls @ 100 m ls/hr 06/23/20 06:15 06/24/20 01:40 Lactated Ringers IV 100 mls/hr .Q10H FELICIANO Administration Piperacillin Sod/T azobactam 50 mls @ 12.5 mls /hr 06/23/20 13:30 06/24/20 06:10 Sod 3.375 gm/ So dium Chloride IV 12.5 mls/hr Q8H FELICIANO Administration Protocol As Directed Lorazepam 2 mg 06/23/20 06:14 Ativan IM PROTOCOL PRN ALCOWD Protocol Lorazepam 2 mg 06/23/20 06:14 Ativan PO PROTOCOL PRN WITHDRAWAL Protocol Multivitamins Ther apeutic 1 tab 06/23/20 09:00 06/23/20 11:37 Multivitamin Tab PO 1 tab DAILY FELICIANO Administration Ondansetron HCl 4 mg 06/23/20 06:14 Zofran IVP Q8H PRN vomiting, or N/V if npo Pantoprazole Sodiu m 40 mg 06/24/20 06:00 06/24/20 06:11 Protonix IVP 40 mg Q12H FELICIANO Administration Sucralfate 1 gm 06/23/20 08:30 06/24/20 06:11 Carafate PO 1 gm BIDAC FELICIANO Administration Thiamine Mononitra te 100 mg 06/23/20 09:00 06/23/20 08:44 Vitamin B-1 PO 100 mg DAILY FELICIANO Administration No Known Allergies Allergy (Verified 06/23/20 08:28) Vitals/I&O/Wt Last Vital Signs Temp 98.2 F 06/24/20 06:00 Pulse 70 06/24/20 06:00 Resp 21 H 06/24/20 06:00 BP 96/59 06/24/20 06:00 Pulse Ox 94 06/24/20 06:00 06/23/20 06/24/20 06/24/20 22:59 06:59 14:59 Intake Total 1101 / 1531 391 / 1922 Output Total 200 / 200 Balance 1101 / 1531 191 / 1722 Weight last 48 hrs Weight 99.79 kg Physical Exam Const: COMMON NORMALS: no acute distress, patient oriented x3 and alert GENERAL APPEARANCE: cooperative and comfortable ORIENTATION/CONSCIOUSNESS: Yes awake HENMT: COMMON NORMALS: normocephalic, atraumatic, hearing grossly normal bilaterally and moist oral mucous membranes HEAD & SCALP: normocephalic and atraumatic NOSE: Other nasal findings present (Bulbous nose) Eye: COMMON NORMALS: Equal, round and reactive pupils present, EOMs intact bilaterally and conjunctivae normal CONJUNCTIVA: Yes conjunctivae normal PUPIL: Yes Equal, round and reactive pupils present Neck/C-Spine: COMMON NORMALS: full ROM GENERAL: Yes normal visual inspection and Yes trachea midline Resp: COMMON NORMALS: normal respiratory effort, No retractions, No use of accessory muscles and clear to auscultation bilaterally EFFORT & INSPECTION: Yes able to speak in complete sentences, Yes symmetric chest movement and No tachypneic AUSCULTATION: clear to auscultation bilaterally OTHER: -on 2 L NC Cardio: COMMON NORMALS: regular rate, regular rhythm, S1 normal heart sound present, S2 normal heart sound present and No murmurs present (Cardio) RATE: regular rate RHYTHM: regular rhythm HEART SOUNDS: S1 normal heart sound present and S2 normal heart sound present GI: COMMON NORMALS: Normal to inspection, nondistended, normoactive bowel sounds present, Soft to palpation and non-tender INSPECTION: Yes central obesity PALPATION: Yes Soft to palpation Extremity: COMMON NORMALS: normal to inspection, full ROM and no clubbing, cyanosis or edema; negative for no pedal edema Neuro: COMMON NORMALS: patient oriented x3, moves all extremities, no focal motor deficits and no sensory deficits noted SENSORIUM/ORIENTATION: Yes alert Psych: COMMON NORMALS: mental status grossly normal, Normal thought process present, cooperative, normal affect and speech normal SPEECH: Yes normal speech THOUGHT PROCESS: Normal thought process present Skin: COMMON NORMALS: no rashes or lesions noted, no jaundice, no petechiae and no mottling GENERAL SKIN EXAM: no rashes or lesions noted Data : 06/24/20 04:28 06/24/20 04:28 A&P Assessment and plan (1) Acute upper gastrointestinal bleeding: -Presented with complaints of coffee-ground emesis and black tarry stools -Slight drop in hemoglobin part of which could be dilutional, continue to monitor every 6 hours -now s/p EGD showing grade C esophagitis, esophageal varices; done 06/[address] Kennedy -On PPI drip and octreotide drip; d/c octreotide drip, switch to IV PPI -Continue to monitor vital signs -CLD; advance as tolerated -Received 1 bag of FFPs due to INR elevation (06/23) -continue to monitor for further bleeding -CT A/P shows hydrops of appendix, severe fatty liver, right liver lobe calcifications, few varices; on empiric Zosyn; d/c Status: Acute (2) COPD (chronic obstructive pulmonary disease): -not oxygen dependent at baseline -on 2 L NC currently -continue to monitor respiratory status -CXR unremarkable -chronic smoker Status: Chronic Qualifiers: COPD type: unspecified COPD Qualified Code(s): J44.9 - Chronic obstructive pulmonary disease, unspecified (3) EDITH (obstructive sleep apnea): Status: Chronic (4) Hypertension: -continue to monitor vital signs Status: Chronic Qualifiers: Hypertension type: essential hypertension Qualified Code(s): I10 - Essential (primary) hypertension (5) Liver cirrhosis: -still actively drinking EtOH -liver US: Grossly enlarged liver with portal venous hypertension -CT A/P: hydrops of appendix, severe fatty liver, right liver lobe calcifications, few varices -noted elevated T.bili, AST, ALP Status: Acute Qualifiers: Ascites presence: without ascites Hepatic cirrhosis type: alcoholic cirrhosis Qualified Code(s): K70.30 - Alcoholic cirrhosis of liver without ascites Additional A&P Information -Morbid obesity: BMI-36 kg/m2 -EtOH abuse; on CIWA protocol, thiamine, folic acid, MVI -BPH; on tamsulosin -GI ppx with PPI -DVT ppx with SCDs; no AC due to bleeding -Dispo: home -Code status: FULL code -transfer to medical-surgical floor as stable. Anticipate d/c tomorrow if continued stability. Attestations Medical Necessity Statement*: Patient requires hospitalization for continued management of upper GI bleed, pending oral intake. Time Spent in Patient Care: 16 - 35 minutes (>than 50% of time spent in counselling and/or direct pt care on unit) . Coding Level of Care Code Acute Electric Motor Winders Assembler for g Fwd Exam Comprehensive Diagnoses Acute upper gastrointestinal bleeding K92.2 COPD (chronic obstructive pulmonary disease) J44.9 COPD type: unspecified COPD EDITH (obstructive sleep apnea) G47.33 Hypertension I10 Hypertension type: essential hypertension Liver cirrhosis K70.30 Ascites presence: without ascites Hepatic cirrhosis type: alcoholic cirrhosis
[2020-06-24] MEDS: folic acid 1 mg Tablet PO (09:22)
[2020-06-24] MEDS: multivitamin therapeutic Tablet 1 TAB PO (09:22)
[2020-06-24] MEDS: thiamine 100 mg Tablet PO (09:22)
--- NOTE | 2020-06-24 09:34 | PM.PN ---
Subjective Medications: Reviewed: Yes Medication Review Details: Patient has been stable overnight, no further episodes of hematemesis, hematochezia or melena. Patient denies any abdominal pain Vitals/I&O/Wt Last Vital Signs Temp 98.2 F 06/24/20 06:00 Pulse 75 06/24/20 09:00 Resp 19 H 06/24/20 09:00 BP 89/50 06/24/20 09:00 Pulse Ox 92 06/24/20 09:00 06/23/20 06/24/20 06/24/20 22:59 06:59 14:59 Intake Total 1101 / 1922 391 / 1922 Output Total 200 / 200 Balance 1101 / 1722 191 / 1722 Weight last 48 hrs Weight 220 lb Physical Exam Narrative: EXAM NARRATIVE: Abdomen: Soft, nondistended, nontender Data : 06/24/20 04:28 06/24/20 04:28 A&P Assessment and plan (1) Appendix disease: CT had showed hydrops of the appendix Continue to treat empirically with IV Zosyn Patient subsequently will need colonoscopy as an outpatient with possible appendectomy in the future if the hydrops continues to enlarge or if he becomes symptomatic Status: Acute (2) Acute upper gastrointestinal bleedin-year-old gentleman with alcoholic liver disease with gastric varices. No evidence of active GI bleed Hemoglobin stable Start clear liquid diet DC octreotide Change Protonix from continuous infusion to twice daily dosing Patient could potentially go up to the floor later this afternoon if he remained stable Status: Acute Attestations Medical Necessity Statement*: GI bleed and hydrops of the appendix requiring continued inpatient stay Coding Level of Care Code Acute Brass And Wind Instrument Repairer for Silvia Ford Diagnoses Appendix disease K38.9 Acute upper gastrointestinal bleeding K92.2
--- NOTE | 2020-06-24 18:23 | PC.NURSE ---
Report faxed to [employer].
--- NOTE | 2020-06-24 18:25 | PC.NURSE ---
Shift summary: Pt alert and oriented throughout shift. Octreotide infusing stopped at 1000. He started clear liquid diet at breakfast. Has tolerated well. No nausea or emesis. He stands at bedside to urinate in urinal has no difficulty. He has had 2 loose dark BM today. Pt has been pleasant and joking throughout shift. , Shonda, in at visiting hours.
--- NOTE | 2020-06-24 18:30 | PC.NURSE ---
Report called to [facility]. Report given to Alexander.
--- NOTE | 2020-06-24 18:35 | PC.NURSE ---
Pt transferred to [facility] via W/C. All belongings with pt.
--- NOTE | 2020-06-24 19:00 | PC.NURSE ---
All care and charting by SN Tatyana supervised directly by this nurse.
--- NOTE | 2020-06-24 19:33 | PC.NURSE ---
, Shonda, notified via telephone of pt's move to [facility].
[2020-06-24 20:51] LABS: Glucose Point of Care 109 mg/dL (70-110)
[2020-06-25] VITALS (8 sets, daily range): BP systolic 89–115; BP diastolic 48–73; PULSE 70–85; RESP 16–18; TEMP 36.7–37; O2SAT 85–96
[2020-06-25] MEDS: lactated ringers 1,000 ML 100 ML IV (00:56)
[2020-06-25 03:44] LABS: Basophils # 0.1 10^3/uL (0.0-0.1); Basophils % 0.6 %; Eosinophils # 0.9 10^3/uL (0.0-0.8); Eosinophils % 7.1 %; Hematocrit 31.4 % (42.0-52.0); Hemoglobin 10.1 g/dL (11.7-16.6); Lymphocytes # 2.3 10^3/uL (0.8-4.8); Lymphocytes % 18.8 %; Mean Corpuscular HGB Conc 32.2 g/dL (30.0-36.0); Mean Corpuscular Hemoglobin 31.2 pg (28.0-34.0); Mean Corpuscular Volume 96.9 fL (80-94); Mean Platelet Volume 10.4 fL (7.4-10.4); Monocytes # 1.3 10^3/uL (0.2-0.9); Monocytes % 10.3 %; Neutrophils # 7.65 10^3/uL (1.8-7.7); Neutrophils % 62.6 %; Nucleated Red Blood Cells % 0 %; Platelet Count 235 10^3/cmm (130-400); Red Blood Count 3.24 10^6/uL (4.1-5.3); Red Cell Distribution Width 17.1 % (12.1-15.1); White Blood Count 12.2 10^3/uL (4.0-10.0)
[2020-06-25 04:22] LABS: Alanine Aminotransferase 20 U/L (0-41); Albumin Level 2.5 g/dL (3.5-5.2); Alkaline Phosphatase 150 IU/L (40-130); Anion Gap 6.7 (5-19); Aspartate Amino Transferase 48 U/L (0-40); Blood Urea Nitrogen 7 mg/dL (8-23); Calcium 7.8 mg/dL (8.5-10.5); Carbon Dioxide 32 mmol/L (22-29); Chloride 99 mmol/L (98-107); Globulin 2.5 g/dL (1.3-4.6); Glucose 104 mg/dL (65-115); Osmolality Calculated 276 mOsm/kg (285-295); Potassium 3.7 mmol/L (3.5-5.1); Sodium 134 mmol/L (136-145); Total Bilirubin 1.7 mg/dL (0.15-1.2)
[2020-06-25] MEDS: pantoprazole 40 mg SDV IVP (06:08)
[2020-06-25] MEDS: sucralfate 1 gm Tablet PO (06:08)
--- NOTE | 2020-06-25 06:32 | NUR.SHIFT ---
Patient had slept through the night. Patient has had zero complaints and is eager to be discharged.
--- NOTE | 2020-06-25 08:21 | P.DS_ITS ---
Discharge Providers Date of Admission: 06/23/20 14:13 Date of Discharge: June 25, 2020 Attending Provider at Admission: Susan Hutson MD Attending Provider at Discharge: Susan Hutson MD Consults: General surgery, Dr. Kennedy Primary Care Provider: Travis Tracy DO Diagnoses at Discharge Discharge Diagnosis (1) Acute upper gastrointestinal bleeding: Status: Acute Permanent problem details: -s/p EGD showing grade C esophagitis, esophageal varices; done 06/[address] Kennedy (2) COPD (chronic obstructive pulmonary disease): Status: Chronic Permanent problem details: -qualifies for 3 L NC per home oxygen evaluation Qualifiers: COPD type: unspecified COPD Qualified Code(s): J44.9 - Chronic obstructive pulmonary disease, unspecified (3) EDITH (obstructive sleep apnea): Status: Chronic (4) Hypertension: Status: Chronic Qualifiers: Hypertension type: essential hypertension Qualified Code(s): I10 - Essential (primary) hypertension (5) Liver cirrhosis: Status: Acute Permanent problem details: -still actively drinking EtOH -liver US: Grossly enlarged liver with portal venous hypertension -CT A/P: hydrops of appendix, severe fatty liver, right liver lobe calcifications, few varices -noted abnormal LFTs Qualifiers: Ascites presence: without ascites Hepatic cirrhosis type: alcoholic cirrhosis Qualified Code(s): K70.30 - Alcoholic cirrhosis of liver without ascites Other Information Additional DC diagnoses/information: -Morbid obesity: BMI-36 kg/m2 -EtOH abuse; on CIWA protocol, thiamine, folic acid, MVI -BPH; on tamsulosin Reason for Visit Reason for Visit: vomiting blood Hospital Course Hospital Course: Patient was admitted to ICU secondary to noted acute upper GI bleeding requiring close monitoring of his hemoglobin, vital signs and further episodes of bleeding. He was started on Protonix drip and octreotide drip. General surgery was consulted and patient had an endoscopy done showing evidence of varices and esophagitis. He did receive 1 bag of FFP's prior to procedure due to noted INR elevation likely related to underlying cirrhosis. There is evidence on imaging of severe fatty liver and cirrhosis secondary to alcohol abuse. Hemoglobin has been stable and he has not required transfusion of any other blood products. He has had a couple more dark stools which seems to have tapered off and he has been hemodynamically stable consistently. He has required some supplemental oxygen support which she is not on at baseline so home oxygen evaluation done prior to discharge and DME arranged as he qualifies for 3 L NC. He has been noted to have abnormal liver function test likely secondary to underlying liver disease. He has been counseled extensively on need for smoking and alcohol cessation. Octreotide was discontinued and Protonix switched to IV. He will be continued on Carafate and Protonix orally. He did have some leukocytosis though with no clinical evidence of infection and this has consistently trended down. Electrolytes and renal function have been stable. He has been tolerating oral intake without further episodes of coffee- ground emesis. Will need appropriate follow-up with his primary care provider. He is counseled on need to seek medical attention immediately should he experience similar or worsening symptoms. Discharge Summary: -Patient follow-up with his primary care provider within 1 week Physical Exam Const: COMMON NORMALS: no acute distress, patient oriented x3 and alert GENERAL APPEARANCE: cooperative and comfortable ORIENTATION/CONSCIOUSNESS: Yes awake HENMT: COMMON NORMALS: normocephalic, atraumatic, hearing grossly normal bilaterally and moist oral mucous membranes HEAD & SCALP: normocephalic and atraumatic NOSE: Other nasal findings present (Bulbous nose) Eye: COMMON NORMALS: Equal, round and reactive pupils present, EOMs intact bilaterally and conjunctivae normal CONJUNCTIVA: Yes conjunctivae normal PUPIL: Yes Equal, round and reactive pupils present Neck/C-Spine: COMMON NORMALS: full ROM GENERAL: Yes normal visual inspection and Yes trachea midline Resp: COMMON NORMALS: normal respiratory effort, No retractions, No use of accessory muscles and clear to auscultation bilaterally EFFORT & INSPECTION: Yes able to speak in complete sentences, Yes symmetric chest movement and No tachypneic AUSCULTATION: clear to auscultation bilaterally OTHER: -on 3 L NC Cardio: COMMON NORMALS: regular rate, regular rhythm, S1 normal heart sound present, S2 normal heart sound present and No murmurs present (Cardio) RATE: regular rate RHYTHM: regular rhythm HEART SOUNDS: S1 normal heart sound present and S2 normal heart sound present GI: COMMON NORMALS: Normal to inspection, nondistended, normoactive bowel sounds present, Soft to palpation and non-tender INSPECTION: Yes central obesity, Yes scar (healed) and Yes visible herniation (umbilical) PALPATION: Yes Soft to palpation Extremity: COMMON NORMALS: normal to inspection, full ROM and no clubbing, cyanosis or edema; negative for no pedal edema Neuro: COMMON NORMALS: patient oriented x3, moves all extremities, no focal motor deficits and no sensory deficits noted SENSORIUM/ORIENTATION: Yes alert Psych: COMMON NORMALS: mental status grossly normal, Normal thought process present, cooperative, normal affect and speech normal SPEECH: Yes normal speech THOUGHT PROCESS: Normal thought process present Skin: COMMON NORMALS: no rashes or lesions noted, no jaundice, no petechiae and no mottling GENERAL SKIN EXAM: no rashes or lesions noted Discharge Data Data Completed and Pending: Completed Studies During Hospitalization Category Date Time Status CT abdomen pelvis w con* [id number] Stat Cat Scan 06/23/20 03:57 Completed XR chest 1V tarsha ble [id number] Stat Exams 06/23/20 02:45 Completed US liver [id number] Ur gent Ultrasound 06/23/20 06:14 Completed Pending at discharge Category Date Time Status Complete Blood Co unt w/Auto AM LABS Lab 06/26/20 04:00 Ordered Comprehensive Met abolic Panel AM LA BS Lab 06/26/20 04:00 Ordered Labs from last 24 hours 06/25/20 06/25/20 06/24/20 03:35 03:35 20:47 WBC 12.2 H RBC 3.24 L Hgb 10.1 L Hct 31.4 L MCV 96.9 H MCH 31.2 MCHC 32.2 RDW 17.1 H Plt Count 235 MPV 10.4 Neut % (Auto) 62.6 Lymph % (Auto) 18.8 [place] % (Auto) 10.3 Eos % (Auto) 7.1 Baso % (Auto) 0.6 Neut # (Auto) 7.65 Lymph # (Auto) 2.3 [place] # (Auto) 1.3 H Eos # (Auto) 0.9 H Baso # (Auto) 0.1 Nucleated RBC % (a uto) 0 Nucleated RBCs # 0.0 Sodium 134 L Potassium 3.7 Chloride 99 Carbon Dioxide 32 H Anion Gap 6.7 BUN 7 L Creatinine 0.5 L GFR Calculation 169.0 H Glucose 104 POC Glucose 109 Calculated Osmolal ity 276 L Calcium 7.8 L Total Bilirubin 1.7 H AST 48 H ALT 20 Alkaline Phosphata se 150 H Total Protein 5.0 L Albumin 2.5 L Globulin 2.5 Vitals: Last Vital Signs Temp 98.4 F 06/25/20 07:01 Pulse 70 06/25/20 07:50 Resp 16 06/25/20 07:50 BP 99/61 06/25/20 07:01 Pulse Ox 95 06/25/20 07:50 Discharge Plan Discharge Patient Disposition: Home Condition: Stable Prescriptions: New sucralfate 1 gram Tablet 1 g PO BIDAC Qty: 60 RF: 0 Vitamin B-1 (mononitrate) 100 mg Tablet 100 mg PO DAILY Qty: 30 RF: 0 pantoprazole 40 mg tablet,delayed release (DR/EC) 40 mg PO BID 30 Days Qty: 60 RF: 0 Continued tamsulosin 0.4 mg capsule 0.4 mg PO DAILY Qty: 90 RF: 2 potassium chloride 20 mEq tablet extended release 20 meq PO BID Qty: 180 RF: 2 spironolactone 100 mg tablet 100 mg PO QAM Qty: 90 RF: 2 Centrum Silver Men 300-600-300 mcg Tablet 1 tab PO DAILY RF: 0 Vitamin B-12 1 tab PO DAILY RF: 0 Discharge Orders: Discharge Order (Routine); Ordered 06/25/20 Ordered By: Susan Hutson Other Ambulatory Orders: DME: Oxygen (Order) Location: None Selected Ordered By: Susan Hutson Referrals: [facility] [place] Travis Tracy DO [Primary Care Provider] - 4-7 days (Post hospital discharge follow up) Discharge Diet: Advance as tolerated Discharge Activity: Increase activity as tolerated Discharge Attestations Time Spent in Discharge Care*: greater than 30 min Specific Discharge Activities: Specific discharge activities: educating patient, discussing with bilingual patient support caseworker/social workers/dc planners, documenting/other paperwork and evaluating patient/reviewing data Time Spent in Smoking Cessation: Time spent discussing smoking cessation with patient: 3 to 10 minutes Details of Smoking Cessation Education: -smoking cessation strongly encouraged Status at Discharge: Cognitive status at discharge: cognitively intact , Behavioral status at discharge: cooperative , Functional status at discharge: independent ambulation Overall status at discharge: patient is progressing back to baseline Quality Metrics Clinical Quality Measures During this hospital stay, did patient experience: None Coding Level of Care Code 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
[2020-06-25] MEDS: thiamine 100 mg Tablet PO (09:16)
[2020-06-25] MEDS: folic acid 1 mg Tablet PO (09:16)
[2020-06-25] MEDS: multivitamin therapeutic Tablet 1 TAB PO (09:16)
--- NOTE | 2020-06-25 11:47 | PC.NURSE ---
Home O2 eval completed. Patient requires 3L NC.
--- NOTE | 2020-06-26 18:03 | PC.RESP ---
Smoking Cessation and Pulmonary Rehab information sent to patient.
== END 2020-06-25 14:21 | disposition home or self-care (01) | DRG 379 ==
LOC: ER 09:37 → OR 13:23 → ICU 14:14 → MEDSURG 06-24 18:31
PROVIDERS: Emergency Medicine; Family Medicine; Surgery; Admitting Provider Family Medicine; PCP Family Medicine; Visit Provider Family Medicine
PROC: 0DJ08ZZ Inspection of Upper Intestinal Tract, Via Natural or Artificial Opening Endoscopic (ICD-10-PCS; CPT 43235; principal; 2020-06-23 12:30)
DX: K92.2 Gastrointestinal hemorrhage, unspecified (principal); I86.4 Gastric varices; I10 Essential (primary) hypertension; K70.30 Alcoholic cirrhosis of liver without ascites; F10.20 Alcohol dependence, uncomplicated; G47.33 Obstructive sleep apnea (adult) (pediatric); F17.210 Nicotine dependence, cigarettes, uncomplicated; J44.9 Chronic obstructive pulmonary disease, unspecified; K76.0 Fatty (change of) liver, not elsewhere classified; M19.90 Unspecified osteoarthritis, unspecified site; Z96.643 Presence of artificial hip joint, bilateral; K38.9 Disease of appendix, unspecified; D64.9 Anemia, unspecified; E66.01 Morbid (severe) obesity due to excess calories; Z68.36 Body mass index [BMI] 36.0-36.9, adult; F19.10 Other psychoactive substance abuse, uncomplicated; K20.90 Esophagitis, unspecified without bleeding
CPT/HCPCS: 12345; 36415; 36416; 36430; 43235; 71045; 74177; 76705; 80053; 81001; 82271; 82550; 82962; 83605; 83690; 83735; 84100; 84145; 84484; 85014; 85018; 85025; 85610; 85730; 86140; 86677; 86900; 86927; 93005; 94640; 94664; 96372; 96375; 99284; C9113; J0330; J0696; J2354; J2405; J2543; J2704; J3411; J3490; P9017; Q9967

== ENCOUNTER 2020-08-24 11:51 | Inpatient (IN) | payer MEDICARE, SELFPAY ==
[2020-08-24] VITALS (8 sets, daily range): BP systolic 92–118; BP diastolic 54–82; PULSE 82–113; RESP 13–21; TEMP 36.6; O2SAT 93–97; BMI 35.5
--- NOTE | 2020-08-24 12:09 | XR_ITS ---
WS: [id number] PORTABLE CHEST HISTORY: GI bleed COMPARISON: 06/23/2020 Pulmonary hyperinflation. No pneumonia. Stable scar at the lingula. No pleural effusion or pneumothor ax. Cardiac size: Normal. Mediastinum/Aorta: Mild atherosclerosis aorta. No osseous abnormality seen. XR/XR chest 1V portable [id number] IMPRESSION: Mild chronic emphysema. No pneumonia.
--- NOTE | 2020-08-24 12:16 | ECG_ITS ---
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 Measurements Intervals [place] Rate: 93 P: 43 CO: 153 QRS: 55 QRSD: 82 T: 73 QT: 371 QTc: 463 Interpretive Statements SINUS RHYTHM Compared to ECG 06/23/2020 04:53:06 Sinus tachycardia no longer present Electronically Signed On 08-24-2020 20:42:10 CHIEF NURSING OFFICER by Korina Parks M.D. [email or web address]
--- NOTE | 2020-08-24 12:17 | CT_ITS ---
WS: [id number] CT ABDOMEN AND PELVIS WITH CONTRAST HISTORY: Hematemesis, melena. TECHNIQUE: Imaging performed of the abdomen and pelvis with IV contrast. Single phase imaging of the abdomen. Coronal and sagittal reformats are submitted. All CT scans at [facility] use at least one of these dose optimization techniques: automated exposure control; mA and/or kV adjustment per patient size (includes targeted exams where dose is matched to clinical indication); or iterativ e reconstruction. IV CONTRAST: Omnipaque 300; 95 mL IV. Oral contrast: No DLP: 1251.94 mGy.cm COMPARISON: 06/23/2020 Lower thorax: Lung bases are clear. Mild enlargement of the heart. Small hiatal hernia. Liver/biliary system: Severe hepatic steatosis. Marked variable enhancement within the liver. There i s a cluster of calcifications in the RIGHT lobe of the liver which is similar to the prior study with no progression. No associated soft tissue mass appreciated. Gallbladder: Normal. No gallstones or wall thickening. No pericholecystic fluid. Pancreas: Normal. Spleen: Normal. Adrenal glands: Normal. Right kidney: No solid mass. No obstruction. Left kidney: No solid mass or obstruction. Aorta: Mild atherosclerosis with no aneurysm. Lymphadenopathy: None. Free fluid: None. GI tract: The appendix is identified and top normal size with some increased fluid. No adjacent infla mmation. Very similar to the prior examination. Mild thickening of the cecal wall. Mild pericecal inf lammatory changes. No free fluid. No discrete mass identified. Abdominal wall: Small umbilical hernia contains fat only. Pelvis: Artifact through the pelvis from patient's hip prostheses. No free fluid or adenopathy identi fied. Bones: Moderate spondylitic changes throughout the lumbar spine. No osteoblastic or osteolytic diseas e. Bilateral total hip prostheses. CT/CT abdomen pelvis w con* [id number] IMPRESSION: 1. Severe hepatic steatosis. 2. Mild circumferential wall thickening involving the cecum with pericecal inf lammatory changes. No mass identified. More likely colitis. Follow-up colonosco py necessary for complete evaluation.
--- NOTE | 2020-08-24 12:27 | ED_ITS ---
HPI - GI Bleed General: Chief complaint: GI Bleed Stated complaint: GI BLEED/ HEMATEMESIS Time Seen by Provider: 08/24/20 12:09 History of Present Illness: HPI Narrative: The patient is a 60-year-old male alcoholic with medical history of upper GI bleeds, varices, and chronic liver failure. He comes to the ER today after drinking alcohol yesterday and vomiting blood and defecating dark red blood. He says today he had bright red blood vomit one episode in the stool has streaks of dark red in it. He has had similar episodes in the past and been admitted multiple times for endoscopy. He has been counseled many times on alcohol cessation and continues to drink alcohol. MD complaint: gross hematemesis, melena and blood streaked stool Pain Consistency: intermittent Severity: moderate Context: history of GI bleed, liver disease and known esophageal varices Associated symptoms: Reports nausea and vomiting; Denies abdominal pain, chills, epistaxis, fever(s), headache(s), malaise, poor appetite or rash Treatments Prior to Arrival: none Review of Systems General: Reports: 10 or more systems reviewed and unremarkable except in HPI a nd below Const: Denies: fever(s), chills or malaise Eyes: Denies: change in vision, blurry vision or eye redness ENMT: Denies: epistaxis Card: Denies: chest pain, palpitations, irregular heart rhythm, edema, dyspnea on exertion or orthopnea Resp: Denies: dyspnea, productive cough or non-productive cough GI: Reports: nausea, vomiting and hematemesis; Denies: abdominal pain : Denies: flank pain, urinary frequency or urinary urgency Musc: Denies: neck pain, back pain, extremity pain, joint pain, joint redness, limited range of motion or muscle weakness Skin/Breast: Denies: rash, pruritus, erythema, skin pain or skin tenderness Neuro: Denies: headache(s) Psych: Denies: anxiety or depression Endo: Denies: polyuria All/Imm: Denies: urticaria, throat swelling or tongue swelling PFSH ED PFSH: Medical History (Updated 08/24/20 @ 18:10 by Susan Hutson MD) Alcoholism Appendix disease Arthritis COPD (chronic obstructive pulmonary disease) -qualifies for 3 L NC per home oxygen evaluation Gastric varices Hypertension Liver cirrhosis -still actively drinking EtOH -liver US: Grossly enlarged liver with portal venous hypertension -CT A/P: hydrops of appendix, severe fatty liver, right liver lobe calcifications, few varices -noted abnormal LFTs EDITH (obstructive sleep apnea) Surgical History H/O bilateral hip replacements Hx of exploratory laparotomy Family History Other Adopted Social History (Updated 08/24/20 @ 18:09 by Susan Hutson MD) Smoking and tobacco status: current every day smoker Alcohol intake: current Alcohol intake frequency: 3 or more drinks per day Alcohol type: beer and hard liquor Physical Exam Const: COMMON NORMALS: no acute distress, average body habitus, patient oriented x3, no limitations, healthy appearing, alert and well nourished GENERAL APPEARANCE: cooperative, comfortable, well kempt and well developed ORIENTATION/CONSCIOUSNESS: Yes awake, Yes oriented to person, Yes oriented to place and Yes oriented to time HENMT: COMMON NORMALS: normocephalic, external ears normal and Normal external nose present HEAD & SCALP: normal to inspection and normocephalic NOSE: Normal external nose present EXTERNAL EAR: Yes external ears normal MOUTH: Normal oral and palatal mucosa present THROAT: posterior oropharynx normal Eye: COMMON NORMALS: Equal, round and reactive pupils present and EOMs intact bilaterally GENERAL EYE: appearance normal, both eyes and all related structures PUPIL: Yes Equal, round and reactive pupils present Neck/C-Spine: COMMON NORMALS: full ROM, no lymphadenopathy, no meningeal signs and no JVD GENERAL: Yes normal visual inspection Lymph: LYMPHATIC: no lymphadenopathy noted Chest: COMMONS NORMALS: normal inspection of the chest and normal palpation of entire chest wall Resp: COMMON NORMALS: normal respiratory effort, No retractions, No use of accessory muscles, clear to auscultation bilaterally and percussion normal EFFORT & INSPECTION: Yes able to speak in complete sentences AUSCULTATION: clear to auscultation bilaterally PERCUSSION: percussion normal Cardio: COMMON NORMALS: no JVD, regular rate, regular rhythm, S1 normal heart sound present, S2 normal heart sound present and Peripheral pulses 2+ throughout RATE: regular rate RHYTHM: regular rhythm HEART SOUNDS: S1 normal heart sound present and S2 normal heart sound present PERIPHERAL PULSES: Peripheral pulses 2+ throughout GI: COMMON NORMALS: Normal to inspection, nondistended, normoactive bowel sounds present, Soft to palpation, non-tender and no masses INSPECTION: Yes normal to inspection PALPATION: Yes Soft to palpation : COMMON NORMALS: Yes no CVA tenderness BLADDER/KIDNEY EXAM: Yes no CVA tenderness Back/Pelvis: COMMON NORMALS: no CVA tenderness, thoracic and lumbar spine normal to inspection, no thoracic nor lumbar tenderness and thoraco-lumbar ROM normal Extremity: COMMON NORMALS: normal to inspection, full ROM, capillary refill normal, no joint enlargement and no pedal edema GENERAL: Yes normal exam except as noted Neuro: COMMON NORMALS: patient oriented x3, CN's II-XII intact bilaterally, moves all extremities, no focal motor deficits, no sensory deficits noted and gait normal SENSORIUM/ORIENTATION: Yes alert, Yes oriented to person, Yes oriented to place and Yes oriented to time MENINGEAL SIGNS: Yes no meningeal signs Psych: COMMON NORMALS: mental status grossly normal, Normal thought process present, cooperative, normal affect and speech normal APPEARANCE: Yes well kempt ATTITUDE: Yes calm SPEECH: Yes normal speech THOUGHT PROCESS: Normal thought process present Skin: COMMON NORMALS: no rashes or lesions noted GENERAL SKIN EXAM: no rashes or lesions noted Course Vital Signs: Vital signs: Vital Signs Temperature 97.8 F 08/24/20 11:56 Pulse Rate 96 08/24/20 17:27 Respiratory Rate 21 H 08/24/20 17:27 Blood Pressure 92/78 08/24/20 17:27 Pulse Oximetry 96 08/24/20 17:27 MDM - GI Bleed MDM Narrative: Medical decision making narrative: The patient is a 60-year-old male who comes to the ER with acute upper GI bleed. He has been admitted for this before and scoped and has esophageal varices. When he is discharged he continues to drink which worsens his symptoms. He is acutely aware that alcohol is what causes his problems but continues to drink. He is stable in the ER and has leukocytosis and CT shows acute colitis which is consistent with his liquid diarrhea. He will be started on antibiotics and admitted to Dr. Hutson on the floor where she will start octreotide drip. Differential Diagnosis: GI bleed differential diagnosis: Likely esophageal varices, gastritis, Upper gastrointestinal hemorrhage, Lower gastrointestinal hemorrhage, hematochezia and melena Lab Data: Labs: Lab Results 08/24/20 08/24/20 08/24/20 Range/Units 13:25 13:25 13:25 WBC 12.7 H (4.0-10.0) 10^3/ uL RBC 4.29 (4.1-5.3) 10^6/u L Hgb 11.2 L (11.7-16.6) g/dL Hct 35.8 L (42.0-52.0) % MCV 83.4 (80-94) fL MCH 26.1 L (28.0-34.0) pg MCHC 31.3 (30.0-36.0) g/dL RDW 21.3 H (12.1-15.1) % Plt Count 267 (130-400) 10^3/c mm MPV 10.6 H (7.4-10.4) fL Neut % (Auto) 67.6 % Lymph % (Auto) 17.3 % [place] % (Auto) 12.5 % Eos % (Auto) 1.8 % Baso % (Auto) 0.4 % Neut # (Auto) 8.62 H (1.8-7.7) 10^3/u L Lymph # (Auto) 2.2 (0.8-4.8) 10^3/u L [place] # (Auto) 1.6 H (0.2-0.9) 10^3/u L Eos # (Auto) 0.2 (0.0-0.8) 10^3/u L Baso # (Auto) 0.1 (0.0-0.1) 10^3/u L Nucleated RBC % (a uto) 0 % Nucleated RBCs # 0.0 /100WBC PT 19.90 H (12.1-14.9) SECO NDS INR 1.63 H (0.8-1.2) Sodium 137 (136-145) mmol/L Potassium 4.0 (3.5-5.1) mmol/L Chloride 100 (98-107) mmol/L Carbon Dioxide 27 (22-29) mmol/L Anion Gap 14.0 (5-19) BUN 7 L (8-23) mg/dL Creatinine 0.4 L (0.7-1.2) mg/dL GFR Calculation 218.0 H (90-130) mL/min Glucose 115 (65-115) mg/dL Calculated Osmolal ity 283 L (285-295) mOsm/k g Lactate (0.5-2.2) mmol/L Calcium 8.2 L (8.5-10.5) mg/dL Total Bilirubin 1.5 H (0.15-1.2) mg/dL AST 58 H (0-40) U/L ALT 22 (0-41) U/L Alkaline Phosphata se 220 H (40-130) IU/L Total Protein 6.1 L (6.6-8.7) g/dL Albumin 2.7 L (3.5-5.2) g/dL Globulin 3.4 (1.3-4.6) g/dL Lipase 14 (13-60) U/L Urine Color (Yellow) Urine Appearance (CLEAR) Urine pH (5-7) Ur Specific Gravit y (1.005-1.030) Urine Protein (Negative) Urine Glucose (UA) (Normal) Urine Ketones (Negative) Urine Blood (Negative) Urine Nitrate (Negative) Urine Bilirubin (Negative) Prot Sulfosalicyli c Acd (Negative) Urine Urobilinogen (Negative) mg/dL Ur Leukocyte Isabella ase (Negative) Urine Opiates Scre en (Negative) ng/mL Ur Barbiturates Sc reen (Negative) ng/mL Ur Phencyclidine S crn (Negative) ng/mL Ur Amphetamines Sc reen (Negative) ng/mL U Benzodiazepines Scrn (Negative) ng/mL Urine Cocaine Scre en (Negative) ng/mL U Marijuana (THC) Screen (Negative) ng/mL Ethyl Alcohol < 10 (0-10) mg/dL Blood Type Rho(D) Type Antibody Screen 08/24/20 08/24/20 08/24/20 Range/Units 13:25 13:25 14:08 WBC (4.0-10.0) 10^3/ uL RBC (4.1-5.3) 10^6/u L Hgb (11.7-16.6) g/dL Hct (42.0-52.0) % MCV (80-94) fL MCH (28.0-34.0) pg MCHC (30.0-36.0) g/dL RDW (12.1-15.1) % Plt Count (130-400) 10^3/c mm MPV (7.4-10.4) fL Neut % (Auto) % Lymph % (Auto) % [place] % (Auto) % Eos % (Auto) % Baso % (Auto) % Neut # (Auto) (1.8-7.7) 10^3/u L Lymph # (Auto) (0.8-4.8) 10^3/u L [place] # (Auto) (0.2-0.9) 10^3/u L Eos # (Auto) (0.0-0.8) 10^3/u L Baso # (Auto) (0.0-0.1) 10^3/u L Nucleated RBC % (a uto) % Nucleated RBCs # /100WBC PT (12.1-14.9) SECO NDS INR (0.8-1.2) Sodium (136-145) mmol/L Potassium (3.5-5.1) mmol/L Chloride (98-107) mmol/L Carbon Dioxide (22-29) mmol/L Anion Gap (5-19) BUN (8-23) mg/dL Creatinine (0.7-1.2) mg/dL GFR Calculation (90-130) mL/min Glucose (65-115) mg/dL Calculated Osmolal ity (285-295) mOsm/k g Lactate 2.0 (0.5-2.2) mmol/L Calcium (8.5-10.5) mg/dL Total Bilirubin (0.15-1.2) mg/dL AST (0-40) U/L ALT (0-41) U/L Alkaline Phosphata se (40-130) IU/L Total Protein (6.6-8.7) g/dL Albumin (3.5-5.2) g/dL Globulin (1.3-4.6) g/dL Lipase (13-60) U/L Urine Color [place] (Yellow) Urine Appearance Clear (CLEAR) Urine pH 8 H (5-7) Ur Specific Gravit y 1.010 (1.005-1.030) Urine Protein Neg (Negative) Urine Glucose (UA) Norm (Normal) Urine Ketones Negative (Negative) Urine Blood Neg (Negative) Urine Nitrate Negative (Negative) Urine Bilirubin Neg (Negative) Prot Sulfosalicyli c Acd Negative (Negative) Urine Urobilinogen 1 H (Negative) mg/dL Ur Leukocyte Isabella ase Negative (Negative) Urine Opiates Scre en (Negative) ng/mL Ur Barbiturates Sc reen (Negative) ng/mL Ur Phencyclidine S crn (Negative) ng/mL Ur Amphetamines Sc reen (Negative) ng/mL U Benzodiazepines Scrn (Negative) ng/mL Urine Cocaine Scre en (Negative) ng/mL U Marijuana (THC) Screen (Negative) ng/mL Ethyl Alcohol (0-10) mg/dL Blood Type O Positive Rho(D) Type Positive Antibody Screen Negative 08/24/20 Range/Units 14:08 WBC (4.0-10.0) 10^3/ uL RBC (4.1-5.3) 10^6/u L Hgb (11.7-16.6) g/dL Hct (42.0-52.0) % MCV (80-94) fL MCH (28.0-34.0) pg MCHC (30.0-36.0) g/dL RDW (12.1-15.1) % Plt Count (130-400) 10^3/c mm MPV (7.4-10.4) fL Neut % (Auto) % Lymph % (Auto) % [place] % (Auto) % Eos % (Auto) % Baso % (Auto) % Neut # (Auto) (1.8-7.7) 10^3/u L Lymph # (Auto) (0.8-4.8) 10^3/u L [place] # (Auto) (0.2-0.9) 10^3/u L Eos # (Auto) (0.0-0.8) 10^3/u L Baso # (Auto) (0.0-0.1) 10^3/u L Nucleated RBC % (a uto) % Nucleated RBCs # /100WBC PT (12.1-14.9) SECO NDS INR (0.8-1.2) Sodium (136-145) mmol/L Potassium (3.5-5.1) mmol/L Chloride (98-107) mmol/L Carbon Dioxide (22-29) mmol/L Anion Gap (5-19) BUN (8-23) mg/dL Creatinine (0.7-1.2) mg/dL GFR Calculation (90-130) mL/min Glucose (65-115) mg/dL Calculated Osmolal ity (285-295) mOsm/k g Lactate (0.5-2.2) mmol/L Calcium (8.5-10.5) mg/dL Total Bilirubin (0.15-1.2) mg/dL AST (0-40) U/L ALT (0-41) U/L Alkaline Phosphata se (40-130) IU/L Total Protein (6.6-8.7) g/dL Albumin (3.5-5.2) g/dL Globulin (1.3-4.6) g/dL Lipase (13-60) U/L Urine Color (Yellow) Urine Appearance (CLEAR) Urine pH (5-7) Ur Specific Gravit y (1.005-1.030) Urine Protein (Negative) Urine Glucose (UA) (Normal) Urine Ketones (Negative) Urine Blood (Negative) Urine Nitrate (Negative) Urine Bilirubin (Negative) Prot Sulfosalicyli c Acd (Negative) Urine Urobilinogen (Negative) mg/dL Ur Leukocyte Isabella ase (Negative) Urine Opiates Scre en Negative (Negative) ng/mL Ur Barbiturates Sc reen Negative (Negative) ng/mL Ur Phencyclidine S crn Negative (Negative) ng/mL Ur Amphetamines Sc reen Negative (Negative) ng/mL U Benzodiazepines Scrn Negative (Negative) ng/mL Urine Cocaine Scre en Negative (Negative) ng/mL U Marijuana (THC) Screen Negative (Negative) ng/mL Ethyl Alcohol (0-10) mg/dL Blood Type Rho(D) Type Antibody Screen Discharge Plan Discharge Patient Disposition: Admitted As Inpatient Clinical Impression: Upper gastrointestinal hemorrhage, Colitis Condition: Stable Discharge Diet: Advance as tolerated Discharge Activity: Resume usual activity Coding Level of Care Code ED Server Service Assistant for Silvia Fwd Exam Comprehensive
[2020-08-24] MEDS: pantoprazole 40 mg SDV 80 MG IVP (13:27)
[2020-08-24] MEDS: sodium chloride 0.9% 1,000 ML 999 ML IV (13:27)
[2020-08-24 13:42] LABS: Basophils # 0.1 10^3/uL (0.0-0.1); Basophils % 0.4 %; Eosinophils # 0.2 10^3/uL (0.0-0.8); Eosinophils % 1.8 %; Hematocrit 35.8 % (42.0-52.0); Hemoglobin 11.2 g/dL (11.7-16.6); Lymphocytes # 2.2 10^3/uL (0.8-4.8); Lymphocytes % 17.3 %; Mean Corpuscular HGB Conc 31.3 g/dL (30.0-36.0); Mean Corpuscular Hemoglobin 26.1 pg (28.0-34.0); Mean Corpuscular Volume 83.4 fL (80-94); Mean Platelet Volume 10.6 fL (7.4-10.4); Monocytes # 1.6 10^3/uL (0.2-0.9); Monocytes % 12.5 %; Neutrophils # 8.62 10^3/uL (1.8-7.7); Neutrophils % 67.6 %; Nucleated Red Blood Cells % 0 %; Platelet Count 267 10^3/cmm (130-400); Red Blood Count 4.29 10^6/uL (4.1-5.3); Red Cell Distribution Width 21.3 % (12.1-15.1); White Blood Count 12.7 10^3/uL (4.0-10.0)
[2020-08-24 13:57] LABS: INR 1.63 (0.8-1.2)
[2020-08-24 14:04] LABS: Alanine Aminotransferase 22 U/L (0-41); Albumin Level 2.7 g/dL (3.5-5.2); Alkaline Phosphatase 220 IU/L (40-130); Blood Urea Nitrogen 7 mg/dL (8-23); Calcium 8.2 mg/dL (8.5-10.5); Carbon Dioxide 27 mmol/L (22-29); Chloride 100 mmol/L (98-107); Globulin 3.4 g/dL (1.3-4.6); Glucose 115 mg/dL (65-115); Lipase 14 U/L (13-60); Osmolality Calculated 283 mOsm/kg (285-295); Sodium 137 mmol/L (136-145); Total Bilirubin 1.5 mg/dL (0.15-1.2); Total Protein 6.1 g/dL (6.6-8.7)
[2020-08-24 14:07] LABS: Alcohol Level < 10 mg/dL (0-10)
[2020-08-24 14:11] LABS: Aspartate Amino Transferase 58 U/L (0-40)
--- NOTE | 2020-08-24 14:18 | PC.PHAR ---
pt states his takes care of his medications-pts sharon states the pt takes the entered medications but is unsure the last time he took-pts states they have a build up of these medications-pharmacy last filled rxs on 05/04/2020 90d/s
[2020-08-24 14:26] LABS: Add Urine Microscopic? NO
[2020-08-24 14:42] LABS: Bilirubin Urine Neg (Negative); Blood Urine Neg (Negative); Glucose Urine UA Norm (Normal); Ketones Urine Negative (Negative); Leukocyte Esterase Urine Negative (Negative); Nitrate Urine Negative (Negative); Protein Urine Neg (Negative); Sulfosalicylic Acid Urine Negative (Negative); Urine Appearance Clear (CLEAR); Urine Color Orange (Yellow); Urobilinogen Urine 1 mg/dL (Negative); pH Urine 8 (5-7)
[2020-08-24] MEDS: iohexol 300 mg/mL 100 mL Btl IV (14:43)
[2020-08-24 14:44] LABS: Amphetamines Screen Urine Negative (Negative); Barbiturates Screen Urine Negative (Negative); Benzodiazepines Screen Urine Negative (Negative); Cocaine Screen Urine Negative (Negative); Opiate Screen Urine Negative (Negative); PCP Screen Urine Negative (Negative); THC Screen Urine Negative (Negative)
--- NOTE | 2020-08-24 18:05 | PM.HP ---
Providers/Chief Complaint Admitting Physician: Susan Hutson MD Primary Care Provider: Travis Tracy DO Chief Complaint: GI BLEED/ HEMATEMESIS History of Present Illness Renaldo Michel is a 60 year old male with PMHx noted below presents with complaints of vomiting blood, blood in his stool over the past few days. Has a known history of chronic alcohol abuse and admits to still drinking, last drink was last night, drank whiskey though cannot remember how much. He is well-known to me from previous admission in June when he had presented with similar symptoms. During that admission he required transfusion of blood products as well as endoscopic evaluation. Reports having tried to at least cut down on his drinking but due to the holidays was unable to do so. He is unable to quantify just how much blood he vomited though he states that it was quite a lot yesterday and even while leaving the ER he has noted loose bloody stool. Work-up so far includes white count of 12.7, hemoglobin of 11.2, normal platelet count, INR of 1.63, normal electrolytes and renal function, elevated LFTs. Urine drug screen and alcohol screen are negative, urinalysis is negative as well. Chest x-ray is unremarkable for any significant changes and CT scan of the abdomen pelvis shows changes consistent with colitis. En route to the hospital he received a 500 mL normal saline bolus due to noted low blood pressure. He has received an additional 1 L normal saline bolus as well as a dose of IV Protonix, Levaquin and metronidazole. He will require further monitoring of his hemoglobin and further bleeding in addition to continued treatment of colitis, hence need for admission. Review of Systems Const: Denies: fever(s), chills, change in appetite or fatigue Eyes: Denies: change in vision ENMT: Denies: odynophagia Card: Denies: chest pain, swelling of feet/ankles or lightheadedness Resp: Denies: dyspnea, productive cough, non-productive cough or hemoptysis GI: Reports: vomiting, hematemesis and hematochezia; Denies: abdominal pain, nausea or bloating : Denies: hematuria Musc: Denies: back pain Skin/Breast: Denies: rash Neuro: Denies: numbness in extremities or weakness in extremities Psych: Denies: anxiety Medications/Allergies Home Medications Medication Instructions Recorded Confirmed Last Taken Type potassium chloride 20 mEq 20 meq PO BID #180 tab 10/20/19 08/24/20 Unknown Rx tablet,extended release spironolactone 100 mg tablet 100 mg PO QAM #90 tab 10/20/19 08/24/20 Unknown Rx Centrum Silver Men 1 tab PO QAM 06/23/20 08/24/20 Unknown History tamsulosin 0.4 mg PO QAM 08/24/20 08/24/20 Unknown History thiamine mononitrate (vit B1) 100 mg PO QAM 08/24/20 08/24/20 Unknown History [Vitamin B-1 (mononitrate)] Allergies Allergy/AdvReac Type Severity Reaction Status Date / Time No Known Allergies Allergy Verified 08/24/20 14:18 PFSH Acute PFSH: Medical History (Updated 08/24/20 @ 19:33 by Susan Hutson MD) Alcoholism Appendix disease Arthritis COPD (chronic obstructive pulmonary disease) -qualifies for 3 L NC per home oxygen evaluation Gastric varices Hypertension Liver cirrhosis -still actively drinking EtOH -associated portal HTN EDITH (obstructive sleep apnea) Surgical History H/O bilateral hip replacements Hx of exploratory laparotomy Family History Other Adopted Social History (Updated 08/24/20 @ 18:09 by Susan Hutson MD) Smoking and tobacco status: current every day smoker Alcohol intake: current Alcohol intake frequency: 3 or more drinks per day Alcohol type: beer and hard liquor Vitals/I&O/Wt Last Vital Signs Temp 97.8 F 08/24/20 11:56 Pulse 96 08/24/20 17:27 Resp 21 H 08/24/20 17:27 BP 92/78 08/24/20 17:27 Pulse Ox 96 08/24/20 17:27 08/24/20 08/24/20 08/24/20 06:59 14:59 22:59 Intake Total 1000 / 1000 Balance 1000 / 1000 Weight last 48 hrs Weight 99.79 kg Physical Exam Const: COMMON NORMALS: no acute distress, patient oriented x3 and alert GENERAL APPEARANCE: cooperative, comfortable and disheveled NUTRITIONAL APPEARANCE: obese morbidly obese ORIENTATION/CONSCIOUSNESS: Yes awake HENMT: COMMON NORMALS: normocephalic, atraumatic, hearing grossly normal bilaterally and moist oral mucous membranes HEAD & SCALP: normocephalic and atraumatic NOSE: Other nasal findings present (bulbous nose with notable tuft of hair) Eye: COMMON NORMALS: Equal, round and reactive pupils present, EOMs intact bilaterally and conjunctivae normal CONJUNCTIVA: Yes conjunctivae normal PUPIL: Yes Equal, round and reactive pupils present Neck/C-Spine: COMMON NORMALS: full ROM GENERAL: Yes normal visual inspection and Yes trachea midline Resp: COMMON NORMALS: normal respiratory effort, No retractions, No use of accessory muscles and clear to auscultation bilaterally EFFORT & INSPECTION: Yes able to speak in complete sentences, Yes symmetric chest movement and No tachypneic AUSCULTATION: clear to auscultation bilaterally OTHER: -on RA Cardio: COMMON NORMALS: regular rate, regular rhythm, S1 normal heart sound present, S2 normal heart sound present and No murmurs present (Cardio) RATE: regular rate RHYTHM: regular rhythm HEART SOUNDS: S1 normal heart sound present and S2 normal heart sound present GI: COMMON NORMALS: Normal to inspection, nondistended, normoactive bowel sounds present, Soft to palpation and non-tender INSPECTION: Yes central obesity PALPATION: Yes Soft to palpation Extremity: COMMON NORMALS: normal to inspection, full ROM and no clubbing, cyanosis or edema; negative for no pedal edema Neuro: COMMON NORMALS: patient oriented x3, moves all extremities, no focal motor deficits, no sensory deficits noted and gait normal Psych: COMMON NORMALS: mental status grossly normal, Normal thought process present, cooperative, normal affect and speech normal SPEECH: Yes normal speech THOUGHT PROCESS: Normal thought process present Skin: COMMON NORMALS: no rashes or lesions noted, no jaundice, no petechiae and no mottling GENERAL SKIN EXAM: no rashes or lesions noted Data : 08/24/20 13:25 08/24/20 13:25 A&P Assessment and plan (1) Upper gastrointestinal hemorrhage: -reports hematemesis, melanotic stool -has known grade C esophagitis, esophageal varices per endoscopy (06/2020) -closely monitor Hg -monitor for further bleeding -PPI BID IV, octreotide drip -CLD for now -telemetry monitoring -monitor vital signs Status: Acute (2) Colitis: -noted evidence of mild circumferential wall thickening involving the cecum with pericecal inflammatory changes -received dose of levaquin and metronidazole; continue antibiotics -IVF hydration -likely contributing to GI blood loss -noted leukocytosis, afebrile Status: Acute (3) Gastric varices: -as noted above Status: Chronic (4) Liver cirrhosis: -associated portal HTN -still actively drinking EtOH; last drink was last night, [facility] protocol -LFTs noted, INR-1.63; may need FFPs if further bleeding Status: Chronic Qualifiers: Ascites presence: without ascites Hepatic cirrhosis type: alcoholic cirrhosis Qualified Code(s): K70.30 - Alcoholic cirrhosis of liver without ascites Additional A&P Information -Morbid obesity: BMI-36 kg/m2 -BPH; on flomax -COPD, no longer oxygen dependent, CXR unremarkable, no acute exacerbation -CLD for now -GI ppx with PPI -DVT ppx with SCDs, no AC -Dispo: home -Code status: FULL code Attestations Medical Necessity Statement*: Renaldo Michel's hospital stay will require greater than 2 midnights for management of GI bleed, colitis, requiring close monitoring of Hg, antibiotics. Time Spent in Patient Care: Greater than 35 minutes (>than 50% of time spent in counselling and/or direct pt care on unit). Coding Level of Care Code Acute Ceramics Machine Operator for Chg Fwd Exam Comprehensive Diagnoses Upper gastrointestinal hemorrhage K92.2 Colitis K52.9 Gastric varices I86.4 Liver cirrhosis K70.30 Ascites presence: without ascites Hepatic cirrhosis type: alcoholic cirrhosis
[2020-08-24 20:40] LABS: Hematocrit 34.2 % (42.0-52.0); Hemoglobin 10.8 g/dL (11.7-16.6)
[2020-08-24] MEDS: sodium chloride 0.45% 1,000 ML 75 ML IV (22:14)
[2020-08-24] MEDS: levofloxacin-dextrose 5 % 750 MG/150 ML PREMIX 100 MG IV (22:14)
[2020-08-25] VITALS (8 sets, daily range): BP systolic 90–113; BP diastolic 54–72; PULSE 74–92; RESP 16–18; TEMP 36.6–37.3; O2SAT 90–93
[2020-08-25] MEDS: octreotide 500 MCG in sodium chloride 0.9% (100 ml) 100 ML 10.1 MCG IV ×2 (00:11→14:12)
[2020-08-25 02:29] LABS: Basophils # 0.1 10^3/uL (0.0-0.1); Basophils % 0.7 %; Eosinophils # 0.6 10^3/uL (0.0-0.8); Eosinophils % 5.2 %; Lymphocytes # 3.2 10^3/uL (0.8-4.8); Lymphocytes % 26.8 %; Mean Corpuscular HGB Conc 31.3 g/dL (30.0-36.0); Mean Corpuscular Volume 83.1 fL (80-94); Mean Platelet Volume 11.5 fL (7.4-10.4); Monocytes # 1.5 10^3/uL (0.2-0.9); Monocytes % 12.1 %; Neutrophils # 6.58 10^3/uL (1.8-7.7); Neutrophils % 54.7 %; Nucleated Red Blood Cells % 0 %; Platelet Count 249 10^3/cmm (130-400); Red Blood Count 3.85 10^6/uL (4.1-5.3); Red Cell Distribution Width 21.5 % (12.1-15.1)
[2020-08-25 03:04] LABS: Alanine Aminotransferase 17 U/L (0-41); Albumin Level 2.7 g/dL (3.5-5.2); Alkaline Phosphatase 198 IU/L (40-130); Anion Gap 12.7 (5-19); Aspartate Amino Transferase 40 U/L (0-40); Blood Urea Nitrogen 9 mg/dL (8-23); Calcium 8.2 mg/dL (8.5-10.5); Carbon Dioxide 27 mmol/L (22-29); Chloride 104 mmol/L (98-107); Glucose 59 mg/dL (65-115); Osmolality Calculated 286 mOsm/kg (285-295); Potassium 3.7 mmol/L (3.5-5.1); Sodium 140 mmol/L (136-145); Total Bilirubin 1.3 mg/dL (0.15-1.2); Total Protein 5.7 g/dL (6.6-8.7)
[2020-08-25] MEDS: metroNIDAZOLE IV 500 MG/100 ML PREMIX 100 MG IV ×3 (05:04→19:40)
[2020-08-25] MEDS: tamsulosin 0.4 mg Capsule PO (05:10)
[2020-08-25] MEDS: thiamine 100 mg Tablet PO (05:10)
[2020-08-25 07:51] LABS: Hematocrit 31.3 % (42.0-52.0); Hemoglobin 9.8 g/dL (11.7-16.6)
[2020-08-25] MEDS: multivitamin therapeutic Tablet 1 TAB PO (08:42)
[2020-08-25] MEDS: folic acid 1 mg Tablet PO (08:42)
[2020-08-25] MEDS: potassium chloride ER 20 mEq Tablet PO ×2 (08:43→17:55)
--- NOTE | 2020-08-25 09:05 | P.PN_ITS ---
Subjective Subjective: Interval history: Hemoglobin gradually trending down, 9.8 this AM, no apparent bleeding overnight, decreasing leukocytosis. Resting quietly in bed, no complaints. Reports having had 2 bloody BMs so far today, no hematemesis or hematuria. Medications: Reviewed: Yes Medication Review Details: Active Medications Generic Name Dose Route Start Last Admin Trade Name Freq PRN Reason Stop Dose Admin Acetaminophen 650 mg 08/24/20 19:48 Acetaminophen 32 5 Mg Tablet PO Q6H PRN Mild/Mod Pain Or Temp >/= 101 Folic Acid 1 mg 08/25/20 09:00 08/25/20 08:42 Folic Acid 1 Mg Tablet PO 1 mg DAILY FELICIANO Administration Octreotide Acetate 500 mcg/ 101 mls @ 10.1 ml s/hr 08/24/20 18:15 08/25/20 00:11 Sodium Chloride IV 50 mcg/hr .Q10H FELICIANO 10.1 mls/hr Administration 50 MCG/HR Sodium Chloride 1,000 mls @ 75 ml s/hr 08/24/20 19:48 08/24/20 22:14 Sodium Chloride 0.45% IV 75 mls/hr .[id number] FELICIANO Administration Metronidazole 500 mg in 100 mls @ 100 mls/hr 08/24/20 19:48 08/25/20 05:04 Flagyl Iv IV 100 mls/hr Q8H FELICIANO Administration Protocol Levofloxacin/Dextr ose 750 mg in 150 mls @ 100 mls/hr 08/24/20 19:48 08/24/20 22:14 Levaquin-D5w IV 100 mls/hr Q24H FELICIANO Administration Protocol Lorazepam 2 mg 08/24/20 19:48 Lorazepam 2 Mg/M l Inj 1 Ml IM PROTOCOL PRN ALCOWD Protocol Lorazepam 2 mg 08/24/20 19:48 Lorazepam 2 Mg T ablet PO PROTOCOL PRN WITHDRAWAL Protocol Morphine Sulfate 2 mg 08/24/20 19:48 Morphine 4 Mg/Ml Sdv 1 Ml IVP Q4H PRN SEVERE PAIN Multivitamins Ther apeutic 1 tab 08/25/20 09:00 08/25/20 08:42 Multivitamin The rapeutic Tablet PO 1 tab DAILY FELICIANO Administration Ondansetron HCl 4 mg 08/24/20 19:48 Ondansetron 2 Mg /Ml Sdv 2 Ml IVP Q6H PRN vomiting, or N/V if npo Pantoprazole Sodiu m 40 mg 08/24/20 21:00 Pantoprazole 40 Mg Sdv IVP Q12H FELICIANO Potassium Chloride 20 meq 08/25/20 09:00 08/25/20 08:43 Potassium Chlori de Er 20 Meq Table t PO 20 meq BID FELICIANO Administration Tamsulosin HCl 0.4 mg 08/25/20 06:00 08/25/20 05:10 Tamsulosin 0.4 M g Capsule PO 0.4 mg QAM FELICIANO Administration Thiamine Mononitra te 100 mg 08/25/20 06:00 08/25/20 05:10 Thiamine 100 Mg Tablet PO 100 mg QAM FELICIANO Administration No Known Allergies Allergy (Verified 08/24/20 14:18) Vitals/I&O/Wt Last Vital Signs Temp 97.9 F 08/25/20 08:00 Pulse 92 08/25/20 08:00 Resp 17 08/25/20 08:00 BP 110/72 08/25/20 08:00 Pulse Ox 93 08/25/20 08:00 08/24/20 08/25/20 08/25/20 22:59 06:59 14:59 Intake Total 1000 / 1000 Balance 1000 / 1000 Weight last 48 hrs Weight 99.79 kg Weight 99.79 kg Physical Exam Const: COMMON NORMALS: no acute distress, patient oriented x3 and alert GENERAL APPEARANCE: cooperative, comfortable and disheveled NUTRITIONAL APPEARANCE: obese morbidly obese ORIENTATION/CONSCIOUSNESS: Yes awake HENMT: COMMON NORMALS: normocephalic, atraumatic, hearing grossly normal bilaterally and moist oral mucous membranes HEAD & SCALP: normocephalic and atraumatic NOSE: Other nasal findings present (bulbous nose with notable tuft of hair) Eye: COMMON NORMALS: Equal, round and reactive pupils present, EOMs intact bilaterally and conjunctivae normal CONJUNCTIVA: Yes conjunctivae normal PUPIL: Yes Equal, round and reactive pupils present Neck/C-Spine: COMMON NORMALS: full ROM GENERAL: Yes normal visual inspection and Yes trachea midline Resp: COMMON NORMALS: normal respiratory effort, No retractions, No use of accessory muscles and clear to auscultation bilaterally EFFORT & INSPECTION: Yes able to speak in complete sentences, Yes symmetric chest movement and No tachypneic AUSCULTATION: clear to auscultation bilaterally OTHER: -on RA Cardio: COMMON NORMALS: regular rate, regular rhythm, S1 normal heart sound present, S2 normal heart sound present and No murmurs present (Cardio) RATE: regular rate RHYTHM: regular rhythm HEART SOUNDS: S1 normal heart sound present and S2 normal heart sound present GI: COMMON NORMALS: Normal to inspection, nondistended, normoactive bowel sounds present, Soft to palpation and non-tender INSPECTION: Yes central obesity PALPATION: Yes Soft to palpation Extremity: COMMON NORMALS: normal to inspection, full ROM and no clubbing, cyanosis or edema; negative for no pedal edema Neuro: COMMON NORMALS: patient oriented x3, moves all extremities, no focal motor deficits, no sensory deficits noted and gait normal SENSORIUM/ORIE NTATION: Yes alert Psych: COMMON NORMALS: mental status grossly normal, Normal thought process present, cooperative, normal affect and speech normal SPEECH: Yes normal speech THOUGHT PROCESS: Normal thought process present Skin: COMMON NORMALS: no rashes or lesions noted, no jaundice, no petechiae and no mottling GENERAL SKIN EXAM: no rashes or lesions noted Data : 08/25/20 16:20 08/25/20 01:48 A&P Assessment and plan (1) Upper gastrointestinal hemorrhage: -reports hematemesis, melanotic stool -has known grade C esophagitis, esophageal varices per endoscopy (06/2020) -closely monitor Hg -continue to monitor for further bleeding -PPI BID IV, octreotide drip -CLD for now in case of need for clinical decompensation requiring intervention -telemetry monitoring -continue to monitor vital signs Status: Acute (2) Colitis: -noted evidence of mild circumferential wall thickening involving the cecum with pericecal inflammatory changes -continue dose of levaquin and metronidazole -IVF hydration -likely contributing to GI blood loss -noted leukocytosis, afebrile Status: Acute (3) Gastric varices: -as noted above Status: Chronic (4) Liver cirrhosis: -associated portal HTN -still actively drinking EtOH; last drink was last night, [facility] protocol -LFTs noted, INR-1.63; may need FFPs if further bleeding Status: Chronic Qualifiers: Ascites presence: without ascites Hepatic cirrhosis type: alcoholic cirrhosis Qualified Code(s): K70.30 - Alcoholic cirrhosis of liver without ascites Additional A&P Information -Morbid obesity: BMI-36 kg/m2 -BPH; on flomax -COPD, no longer oxygen dependent, CXR unremarkable, no acute exacerbation -CLD for now -GI ppx with PPI -DVT ppx with SCDs, no AC -Dispo: home -Code status: FULL code Attestations Medical Necessity Statement*: Patient requires hospitalization for continued management of GI bleed, treatment of colitis; needs continued monitoring of hemoglobin. Time Spent in Patient Care: 16 - 35 minutes (>than 50% of time spent in counselling and/or direct pt care on unit) . Coding Level of Care Code Acute Hand Therapist for g Fwd Exam Comprehensive Diagnoses Upper gastrointestinal hemorrhage K92.2 Colitis K52.9 Gastric varices I86.4 Liver cirrhosis K70.30 Ascites presence: without ascites Hepatic cirrhosis type: alcoholic cirrhosis
--- NOTE | 2020-08-25 12:41 | PC.CHAP ---
Pastoral Care Encounter/Spiritual Assessment Type of Contact [] Declined credit and loan collections supervisor visit [] Patient/Family/Request visit [] Outpatient visit [] Follow-up visit [] Physician referral [] Code/Alert [] Routine visit [] Staff referral [] Actively dying [] Patient sleeping [] Family support [] [] Out of room [] Palliative care [] [] Receiving care in room [] Pre-surgical visit [] Trauma [] Long length of stay [] ICU visit [] Other: Relational/Emotional Strength [] Patient feels connected with others/family/visitors/staff [] Distress [] Loneliness/isolation [] Abandonment Spirituality of Patient [] Person of [place]ek[place] [] Attends Jain of their [place] [] Believes in Prayer [] Reads Bible or Scientology materials [] There are Spiritual issues to be addressed 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 [] Prayer [] Active listening [] Non-anxious presence [] Spiritual/emotional support [] Crisis/trauma care [] Spiritual counseling [] Bereavement support [] Provided bereavement packet [] Provided Bible/devotional materials [] Provided toy/stuffed animal, coloring book to patient or family member [] Provided Communion [] Anointing/[place] [] Salvation [] Completed spiritual assessment [] Other: Impact on Illness or Injury [] Angry [] Fearful [] Anxious [] Often cries [] Exhaustion [] Unable to work [] Unable to attend restoration [] Unable to walk/stand [] Unable to read [] Unable to drive [] Unable to eat/drink [] Unable to sleep [] Unable to be with family [] Patient intubated [] Other: Summary No patient visit as patient's roommate is in isolation Time spent with patient
[2020-08-25] MEDS: acetaminophen 325 mg Tablet 650 MG PO (13:29)
--- NOTE | 2020-08-25 15:20 | PC.RESP ---
SMOKING CESSATION AND PULMONARY REHAB INFORMATION SENT TO PATIENT.
[2020-08-25 16:40] LABS: Hematocrit 27.6 % (42.0-52.0); Hemoglobin 8.5 g/dL (11.7-16.6)
[2020-08-25] MEDS: levofloxacin-dextrose 5 % 750 MG/150 ML PREMIX 100 MG IV (17:55)
[2020-08-25] MEDS: sodium chloride 0.45% 1,000 ML 75 ML IV (19:41)
--- NOTE | 2020-08-25 21:29 | PC.NURSE ---
PT IS RESTING IN BED. PT DENIES PAIN. PT STATES THAT THEY ARE WORRIED ABOUT BEING HOOKED UP TO AN IV DUE TO THE FACT THAT THEY HAVE SOILED THEIR PANTS 2X EARLIER. PT WAS INFORMED THAT THE MEDICATION THAT THEY ARE GETTING THROUGH THE IV HELPS WITH LOOSE STOOLS. PHARMACY WAS CALLED A COUPLE OF TIMES TO GET IV PROTONIX. WILL CONTINUE TO MONITOR.
[2020-08-25] MEDS: pantoprazole 40 mg SDV IVP (22:16)
[2020-08-26] VITALS (16 sets, daily range): BP systolic 91–135; BP diastolic 46–82; PULSE 85–94; RESP 16–18; TEMP 36.5–37.4; O2SAT 91–98
[2020-08-26] MEDS: octreotide 500 MCG in sodium chloride 0.9% (100 ml) 100 ML 10.1 MCG IV (01:04)
--- NOTE | 2020-08-26 03:32 | PC.NURSE ---
PT GOT UP 3-4X TO HAVE A BM. PT STATES THAT THIS IS A MAJOR IMPROVEMENT. PT DENIES PAIN WILL CONTINUE TO MONITOR.
[2020-08-26] MEDS: metroNIDAZOLE IV 500 MG/100 ML PREMIX 100 MG IV ×3 (04:29→21:00)
[2020-08-26 04:49] LABS: Basophils # 0.1 10^3/uL (0.0-0.1); Basophils % 0.7 %; Eosinophils % 8.9 %; Hematocrit 24.5 % (42.0-52.0); Hemoglobin 7.9 g/dL (11.7-16.6); Lymphocytes # 2.3 10^3/uL (0.8-4.8); Lymphocytes % 21.1 %; Mean Corpuscular HGB Conc 32.2 g/dL (30.0-36.0); Mean Corpuscular Hemoglobin 26.9 pg (28.0-34.0); Mean Corpuscular Volume 83.3 fL (80-94); Mean Platelet Volume 11.2 fL (7.4-10.4); Monocytes # 1.5 10^3/uL (0.2-0.9); Monocytes % 13.6 %; Neutrophils # 6.04 10^3/uL (1.8-7.7); Neutrophils % 55.1 %; Nucleated Red Blood Cells % 0 %; Platelet Count 217 10^3/cmm (130-400); Red Blood Count 2.94 10^6/uL (4.1-5.3); Red Cell Distribution Width 21.9 % (12.1-15.1)
[2020-08-26 05:10] LABS: INR 1.82 (0.8-1.2)
[2020-08-26] MEDS: thiamine 100 mg Tablet PO (06:08)
[2020-08-26] MEDS: tamsulosin 0.4 mg Capsule PO (06:08)
[2020-08-26] MEDS: pantoprazole 40 mg SDV IVP ×3 (09:49→21:51)
[2020-08-26] MEDS: multivitamin therapeutic Tablet 1 TAB PO (09:59)
[2020-08-26] MEDS: potassium chloride ER 20 mEq Tablet PO ×2 (09:59→18:18)
[2020-08-26] MEDS: folic acid 1 mg Tablet PO (09:59)
--- NOTE | 2020-08-26 12:57 | PM.PN ---
Subjective Subjective: Interval history: BP low to low normal, continues to have blood in stool, Hg continues to drop, down to 7.9 today; INR increasing. No complaints, on bedside commode. Medications: Reviewed: Yes Medication Review Details: Active Medications Generic Name Dose Route Start Last Admin Trade Name Robertq PRN Reason Stop Dose Admin Acetaminophen 650 mg 08/24/20 19:48 08/25/20 13:29 Acetaminophen 32 5 Mg Tablet PO 650 mg Q6H PRN Administration Mild/Mod Pain Or Temp >/= 101 Folic Acid 1 mg 08/25/20 09:00 08/26/20 09:59 Folic Acid 1 Mg Tablet PO 1 mg DAILY FELICIANO Administration Metronidazole 500 mg in 100 mls @ 100 mls/hr 08/24/20 19:48 08/26/20 11:24 Flagyl Iv IV 100 mls/hr Q8H FELICIANO Administration Protocol Levofloxacin/Dextr ose 750 mg in 150 mls @ 100 mls/hr 08/24/20 19:48 08/25/20 17:55 Levaquin-D5w IV 100 mls/hr Q24H FELICIANO Administration Protocol Lorazepam 2 mg 08/24/20 19:48 Lorazepam 2 Mg/M l Inj 1 Ml IM PROTOCOL PRN ALCOWD Protocol Lorazepam 2 mg 08/24/20 19:48 Lorazepam 2 Mg T ablet PO PROTOCOL PRN WITHDRAWAL Protocol Morphine Sulfate 2 mg 08/24/20 19:48 Morphine 4 Mg/Ml Sdv 1 Ml IVP Q4H PRN SEVERE PAIN Multivitamins Ther apeutic 1 tab 08/25/20 09:00 08/26/20 09:59 Multivitamin The rapeutic Tablet PO 1 tab DAILY FELICIANO Administration Ondansetron HCl 4 mg 08/24/20 19:48 Ondansetron 2 Mg /Ml Sdv 2 Ml IVP Q6H PRN vomiting, or N/V if npo Pantoprazole Sodiu m 40 mg 08/24/20 21:00 08/26/20 09:52 Pantoprazole 40 Mg Sdv IVP 40 mg Q12H FELICIANO Administration Potassium Chloride 20 meq 08/25/20 09:00 08/26/20 09:59 Potassium Chlori de Er 20 Meq Table t PO 20 meq BID FELICIANO Administration Tamsulosin HCl 0.4 mg 08/25/20 06:00 08/26/20 06:08 Tamsulosin 0.4 M g Capsule PO 0.4 mg QAM FELICIANO Administration Thiamine Mononitra te 100 mg 08/25/20 06:00 08/26/20 06:08 Thiamine 100 Mg Tablet PO 100 mg QAM FELICIANO Administration No Known Allergies Allergy (Verified 08/24/20 14:18) Vitals/I&O/Wt Last Vital Signs Temp 97.8 F 08/26/20 11:42 Pulse 93 08/26/20 11:42 Resp 18 08/26/20 11:42 BP 105/60 08/26/20 11:42 Pulse Ox 91 08/26/20 11:42 08/25/20 08/26/20 08/26/20 22:59 06:59 14:59 Intake Total 500 / 1941 201 / 2142 480 / 480 Output Total 500 / 500 300 / 800 250 / 250 Balance 0 / 1441 -99 / 1342 230 / 230 Weight last 48 hrs Weight 99.79 kg Physical Exam Const: COMMON NORMALS: no acute distress, patient oriented x3 and alert GENERAL APPEARANCE: cooperative, comfortable and disheveled NUTRITIONAL APPEARANCE: obese morbidly obese ORIENTATION/CONSCIOUSNESS: Yes awake HENMT: COMMON NORMALS: normocephalic, atraumatic, hearing grossly normal bilaterally and moist oral mucous membranes HEAD & SCALP: normocephalic and atraumatic NOSE: Other nasal findings present (bulbous nose with notable tuft of hair) Eye: COMMON NORMALS: Equal, round and reactive pupils present, EOMs intact bilaterally and conjunctivae normal CONJUNCTIVA: Yes conjunctivae normal PUPIL: Yes Equal, round and reactive pupils present Neck/C-Spine: COMMON NORMALS: full ROM GENERAL: Yes normal visual inspection and Yes trachea midline Resp: COMMON NORMALS: normal respiratory effort, No retractions, No use of accessory muscles and clear to auscultation bilaterally EFFORT & INSPECTION: Yes able to speak in complete sentences, Yes symmetric chest movement and No tachypneic AUSCULTATION: clear to auscultation bilaterally OTHER: -on RA Cardio: COMMON NORMALS: regular rate, regular rhythm, S1 normal heart sound present, S2 normal heart sound present and No murmurs present (Cardio) RATE: regular rate RHYTHM: regular rhythm HEART SOUNDS: S1 normal heart sound present and S2 normal heart sound present GI: COMMON NORMALS: Normal to inspection, nondistended, normoactive bowel sounds present, Soft to palpation and non-tender INSPECTION: Yes central obesity PALPATION: Yes Soft to palpation Extremity: COMMON NORMALS: normal to inspection, full ROM and no clubbing, cyanosis or edema; negative for no pedal edema Neuro: COMMON NORMALS: patient oriented x3, moves all extremities, no focal motor deficits, no sensory deficits noted and gait normal SENSORIUM/ORIENTATION: Yes alert Psych: COMMON NORMALS: mental status grossly normal, Normal thought process present, cooperative, normal affect and speech normal SPEECH: Yes normal speech THOUGHT PROCESS: Normal thought process present Skin: COMMON NORMALS: no rashes or lesions noted, no jaundice, no petechiae and no mottling GENERAL SKIN EXAM: no rashes or lesions noted Data : 08/26/20 13:29 08/25/20 01:48 A&P Assessment and plan (1) Upper gastrointestinal hemorrhage: -reports hematemesis, melanotic stool -has known grade C esophagitis, esophageal varices per endoscopy (06/2020) -closely monitor Hg; has continued to drop from 11.2 on admission to 7.9. With borderline hemodynamic status, blood in stool and anticipated continued drop, will transfuse 1 unit of PRBCs today -continue to monitor for further bleeding -PPI BID IV, d/c octreotide drip -telemetry monitoring -continue to monitor vital signs Status: Acute (2) Colitis: -noted evidence of mild circumferential wall thickening involving the cecum with pericecal inflammatory changes -continue dose of levaquin and metronidazole -d/c IVF, good oral hydration -likely contributing to GI blood loss -noted leukocytosis, afebrile; WBC trending down Status: Acute (3) Gastric varices: -as noted above Status: Chronic (4) Liver cirrhosis: -associated portal HTN -still actively drinking EtOH; last drink was last night, [facility] protocol -LFTs noted, INR-1.82; transfuse 1 bag of FFPs Status: Chronic Qualifiers: Ascites presence: without ascites Hepatic cirrhosis type: alcoholic cirrhosis Qualified Code(s): K70.30 - Alcoholic cirrhosis of liver without ascites Additional A&P Information -Morbid obesity: BMI-36 kg/m2 -BPH; on flomax -COPD, no longer oxygen dependent, CXR unremarkable, no acute exacerbation -advance to GI soft diet -GI ppx with PPI -DVT ppx with SCDs, no AC -Dispo: home -Code status: FULL code Attestations Medical Necessity Statement*: Patient requires hospitalization for continued management of GI bleed, continued anemia with need for transfusion of blood products. Time Spent in Patient Care: 16 - 35 minutes (>than 50% of time spent in counselling and/or direct pt care on unit). Coding Level of Care Code Acute Emergency Medicine Specialist for g Fwd Exam Comprehensive Diagnoses Upper gastrointestinal hemorrhage K92.2 Colitis K52.9 Gastric varices I86.4 Liver cirrhosis K70.30 Ascites presence: without ascites Hepatic cirrhosis type: alcoholic cirrhosis
[2020-08-26 13:59] LABS: Hematocrit 23.7 % (42.0-52.0); Hemoglobin 7.4 g/dL (11.7-16.6)
[2020-08-27] VITALS (11 sets, daily range): BP systolic 86–119; BP diastolic 48–77; PULSE 84–97; RESP 16–19; TEMP 36.6–37.3; O2SAT 91–94
[2020-08-27] MEDS: metroNIDAZOLE IV 500 MG/100 ML PREMIX 100 MG IV ×3 (04:31→17:32)
[2020-08-27 04:38] LABS: Basophils # 0.1 10^3/uL (0.0-0.1); Basophils % 0.7 %; Eosinophils # 0.8 10^3/uL (0.0-0.8); Eosinophils % 7.7 %; Hematocrit 23.5 % (42.0-52.0); Hemoglobin 7.5 g/dL (11.7-16.6); Lymphocytes # 2.1 10^3/uL (0.8-4.8); Lymphocytes % 20.2 %; Mean Corpuscular HGB Conc 31.9 g/dL (30.0-36.0); Mean Corpuscular Volume 84.5 fL (80-94); Mean Platelet Volume 11.4 fL (7.4-10.4); Monocytes # 1.5 10^3/uL (0.2-0.9); Monocytes % 14.5 %; Neutrophils # 5.77 10^3/uL (1.8-7.7); Neutrophils % 56.4 %; Nucleated Red Blood Cells % 0 %; Platelet Count 191 10^3/cmm (130-400); Red Blood Count 2.78 10^6/uL (4.1-5.3); White Blood Count 10.2 10^3/uL (4.0-10.0)
[2020-08-27 05:02] LABS: Alanine Aminotransferase 11 U/L (0-41); Albumin Level 2.5 g/dL (3.5-5.2); Alkaline Phosphatase 140 IU/L (40-130); Anion Gap 9.7 (5-19); Aspartate Amino Transferase 26 U/L (0-40); Blood Urea Nitrogen 6 mg/dL (8-23); Calcium 7.5 mg/dL (8.5-10.5); Carbon Dioxide 27 mmol/L (22-29); Chloride 102 mmol/L (98-107); Globulin 2.3 g/dL (1.3-4.6); Glomerular Filtration Rate 168.5 mL/min (90-130); Glucose 89 mg/dL (65-115); Osmolality Calculated 277 mOsm/kg (285-295); Potassium 3.7 mmol/L (3.5-5.1); Sodium 135 mmol/L (136-145); Total Bilirubin 0.9 mg/dL (0.15-1.2); Total Protein 4.8 g/dL (6.6-8.7)
[2020-08-27] MEDS: tamsulosin 0.4 mg Capsule PO (06:57)
[2020-08-27] MEDS: thiamine 100 mg Tablet PO (06:57)
[2020-08-27] MEDS: pantoprazole 40 mg SDV IVP ×2 (08:45→22:22)
[2020-08-27] MEDS: multivitamin therapeutic Tablet 1 TAB PO (08:46)
[2020-08-27] MEDS: folic acid 1 mg Tablet PO (08:46)
[2020-08-27] MEDS: potassium chloride ER 20 mEq Tablet PO ×2 (08:46→17:05)
--- NOTE | 2020-08-27 10:03 | PC.SOCIAL ---
IMM update Pg. 2 of IMM updated, copy provided to patient.
[2020-08-27 12:38] LABS: Hematocrit 25.2 % (42.0-52.0)
--- NOTE | 2020-08-27 12:40 | PC.CHAP ---
Pastoral Care Encounter/Spiritual Assessment Type of Contact [] Declined artist scientific visit [] Patient/Family/Request visit [] Outpatient visit [] Follow-up visit [] Physician referral [] Code/Alert [X] Routine visit [] Staff referral [] Actively dying [] Patient sleeping [] Family support [] [] Out of room [] Palliative care [] [] Receiving care in room [] Pre-surgical visit [] Trauma [] Long length of stay [] ICU visit [] Other: Relational/Emotional Strength [X] Patient feels connected with others/family/visitors/staff [] Distress [] Loneliness/isolation [] Abandonment Spirituality of Patient [] Person of [place] [] Attends Synagogue of their [place] [X] Believes in Prayer [] Reads Bible or Alevism materials [] There are Spiritual issues to be addressed Varnish Remover Interventions [X] Prayer [X] Active listening [X] Non-anxious presence [X] Spiritual/emotional support [] Crisis/trauma care [] Spiritual counseling [] Bereavement support [] Provided bereavement packet [] Provided Bible/devotional materials [] Provided toy/stuffed animal, coloring book to patient or family member [] Provided Communion [] Anointing/[place] [] Salvation [X] Completed spiritual assessment [] Other: Impact on Illness or Injury [] Angry [] Fearful [] Anxious [] Often cries [] Exhaustion [] Unable to work [] Unable to attend religious [] Unable to walk/stand [] Unable to read [] Unable to drive [] Unable to eat/drink [] Unable to sleep [] Unable to be with family [] Patient intubated [] Other: Summary Pts SO was present and both very talkitive and open. The SO was able to vent somewhat regarding her concerns over Pts health issues. Prayer was offered and accepted. Time spent with patient 15 min
--- NOTE | 2020-08-27 12:53 | P.PN_ITS ---
Subjective Subjective: Interval history: Received 1 unit of PRBCs and 1 unit of FFPs, Hg today at 8.0, had 1725 mL urine output overnight, continued decreased leukocytosis. Continues to have blood in stool. Seen ambulating in hallway with his significant other, in good spirits, no complaints, counseled again on alcohol cessation. Medications: Reviewed: Yes Medication Review Details: Active Medications Generic Name Dose Route Start Last Admin Trade Name Freq PRN Reason Stop Dose Admin Acetaminophen 650 mg 08/24/20 19:48 08/25/20 13:29 Acetaminophen 32 5 Mg Tablet PO 650 mg Q6H PRN Administration Mild/Mod Pain Or Temp >/= 101 Folic Acid 1 mg 08/25/20 09:00 08/27/20 08:46 Folic Acid 1 Mg Tablet PO 1 mg DAILY FELICIANO Administration Metronidazole 500 mg in 100 mls @ 100 mls/hr 08/24/20 19:48 08/27/20 10:56 Flagyl Iv IV 100 mls/hr Q8H FELICIANO Administration Protocol Levofloxacin/Dextr ose 750 mg in 150 mls @ 100 mls/hr 08/24/20 19:48 08/26/20 21:00 Levaquin-D5w IV Not Given Q24H FELICIANO Protocol Lorazepam 2 mg 08/24/20 19:48 Lorazepam 2 Mg/M l Inj 1 Ml IM PROTOCOL PRN ALCOWD Protocol Lorazepam 2 mg 08/24/20 19:48 Lorazepam 2 Mg T ablet PO PROTOCOL PRN WITHDRAWAL Protocol Morphine Sulfate 2 mg 08/24/20 19:48 Morphine 4 Mg/Ml Sdv 1 Ml IVP Q4H PRN SEVERE PAIN Multivitamins Ther apeutic 1 tab 08/25/20 09:00 08/27/20 08:46 Multivitamin The rapeutic Tablet PO 1 tab DAILY FELICIANO Administration Ondansetron HCl 4 mg 08/24/20 19:48 Ondansetron 2 Mg /Ml Sdv 2 Ml IVP Q6H PRN vomiting, or N/V if npo Pantoprazole Sodiu m 40 mg 08/24/20 21:00 08/27/20 08:45 Pantoprazole 40 Mg Sdv IVP 40 mg Q12H FELICIANO Administration Potassium Chloride 20 meq 08/25/20 09:00 08/27/20 08:46 Potassium Chlori de Er 20 Meq Table t PO 20 meq BID FELICIANO Administration Tamsulosin HCl 0.4 mg 08/25/20 06:00 08/27/20 06:57 Tamsulosin 0.4 M g Capsule PO 0.4 mg QAM FELICIANO Administration Thiamine Mononitra te 100 mg 08/25/20 06:00 08/27/20 06:57 Thiamine 100 Mg Tablet PO 100 mg QAM FELICIANO Administration No Known Allergies Allergy (Verified 08/24/20 14:18) Vitals/I&O/Wt Last Vital Signs Temp 98.0 F 08/27/20 11:43 Pulse 88 08/27/20 11:43 Resp 17 08/27/20 11:43 BP 109/71 08/27/20 11:43 Pulse Ox 91 08/27/20 11:43 08/26/20 08/27/20 08/27/20 22:59 06:59 14:59 Intake Total 1010 / 1590 900 / 2490 480 / 480 Output Total 1350 / 1950 1425 / 3375 175 / 175 Balance -340 / -360 -525 / -885 305 / 305 Weight last 48 hrs Weight 93.304 kg Physical Exam Const: COMMON NORMALS: no acute distress, patient oriented x3 and alert GENERAL APPEARANCE: cooperative, comfortable and disheveled NUTRITIONAL APPEARANCE: obese morbidly obese ORIENTATION/CONSCIOUSNESS: Yes awake OTHER: -ambulating in hallway HENMT: COMMON NORMALS: normocephalic, atraumatic, hearing grossly normal bilaterally and moist oral mucous membranes HEAD & SCALP: normocephalic and atraumatic NOSE: Other nasal findings present (bulbous nose with notable tuft of hair) Eye: COMMON NORMALS: Equal, round and reactive pupils present, EOMs intact bilaterally and conjunctivae normal CONJUNCTIVA: Yes conjunctivae normal PUPIL: Yes Equal, round and reactive pupils present Neck/C-Spine: COMMON NORMALS: full ROM GENERAL: Yes normal visual inspection and Yes trachea midline Resp: COMMON NORMALS: normal respiratory effort, No retractions, No use of accessory muscles and clear to auscultation bilaterally EFFORT & INSPECTION: Yes able to speak in complete sentences, Yes symmetric chest movement and No tachypneic AUSCULTATION: clear to auscultation bilaterally OTHER: -on RA Cardio: COMMON NORMALS: regular rate, regular rhythm, S1 normal heart sound present, S2 normal heart sound present and No murmurs present (Cardio) RATE: regular rate RHYTHM: regular rhythm HEART SOUNDS: S1 normal heart sound present and S2 normal heart sound present GI: COMMON NORMALS: Normal to inspection, nondistended, normoactive bowel sounds present, Soft to palpation and non-tender INSPECTION: Yes central obesity PALPATION: Yes Soft to palpation Extremity: COMMON NORMALS: normal to inspection, full ROM and no clubbing, cyanosis or edema; negative for no pedal edema Neuro: COMMON NORMALS: patient oriented x3, moves all extremities, no focal motor deficits, no sensory deficits noted and gait normal SENSORIUM/ORIENTATION: Yes alert Psych: COMMON NORMALS: mental status grossly normal, Normal thought process present, cooperative, normal affect and speech normal SPEECH: Yes normal speech THOUGHT PROCESS: Normal thought process present Skin: COMMON NORMALS: no rashes or lesions noted, no jaundice, no petechiae and no mottling GENERAL SKIN EXAM: no rashes or lesions noted Data : 08/27/20 12:30 08/27/20 03:27 A&P Assessment and plan (1) Upper gastrointestinal hemorrhage: -reports hematemesis, melanotic stool -has known grade C esophagitis, esophageal varices per endoscopy (06/2020) -closely monitor Hg; has continued to drop from 11.2 on admission to 7.9/8.0. With borderline hemodynamic status, blood in stool and anticipated continued drop, s/p 1 unit of PRBCs (08/26) -continue to monitor for further bleeding -PPI BID IV, off octreotide drip -telemetry monitoring -continue to monitor vital signs Status: Acute (2) Colitis: -noted evidence of mild circumferential wall thickening involving the cecum with pericecal inflammatory changes -continue dose of levaquin and metronidazole (day 4) -off IVF, good oral hydration -likely contributing to GI blood loss -noted leukocytosis, afebrile; WBC trending down Status: Acute (3) Gastric varices: -as noted above Status: Chronic (4) Liver cirrhosis: -associated portal HTN -still actively drinking EtOH; last drink was last night, [facility] protocol -LFTs noted, INR-1.82; s/p 1 bag of FFPs (08/26) Status: Chronic Qualifiers: Ascites presence: without ascites Hepatic cirrhosis type: alcoholic cirrhosis Qualified Code(s): K70.30 - Alcoholic cirrhosis of liver without ascites Additional A&P Information -Morbid obesity: BMI-33 kg/m2 -BPH; on flomax -COPD, no longer oxygen dependent, CXR unremarkable, no acute exacerbation -GI soft diet -GI ppx with PPI -DVT ppx with SCDs, no AC -Dispo: home -Code status: FULL code Attestations Medical Necessity Statement*: Patient requires hospitalization for continued management of GI bleed with associated anemia, and continued treatment of colitis. Time Spent in Patient Care: 16 - 35 minutes (>than 50% of time spent in counselling and/or direct pt care on unit) . Coding Level of Care Code Acute Appraiser Personal Property for Chg Fwd Exam Comprehensive Diagnoses Upper gastrointestinal hemorrhage K92.2 Colitis K52.9 Gastric varices I86.4 Liver cirrhosis K70.30 Ascites presence: without ascites Hepatic cirrhosis type: alcoholic cirrhosis
[2020-08-27] MEDS: levofloxacin-dextrose 5 % 750 MG/150 ML PREMIX 100 MG IV (17:31)
[2020-08-28] VITALS (7 sets, daily range): BP systolic 101–107; BP diastolic 62–68; PULSE 84–99; RESP 17–20; TEMP 36.7–36.9; O2SAT 95–97
[2020-08-28] MEDS: metroNIDAZOLE IV 500 MG/100 ML PREMIX 100 MG IV ×2 (03:13→10:49)
[2020-08-28 04:30] LABS: Basophils # 0.1 10^3/uL (0.0-0.1); Basophils % 0.6 %; Eosinophils # 0.6 10^3/uL (0.0-0.8); Eosinophils % 5.8 %; Hematocrit 23.4 % (42.0-52.0); Hemoglobin 7.6 g/dL (11.7-16.6); Lymphocytes # 1.8 10^3/uL (0.8-4.8); Lymphocytes % 17.5 %; Mean Corpuscular HGB Conc 32.5 g/dL (30.0-36.0); Mean Corpuscular Hemoglobin 27.1 pg (28.0-34.0); Mean Corpuscular Volume 83.6 fL (80-94); Mean Platelet Volume 10.8 fL (7.4-10.4); Monocytes # 1.7 10^3/uL (0.2-0.9); Monocytes % 15.8 %; Neutrophils # 6.32 10^3/uL (1.8-7.7); Neutrophils % 59.9 %; Nucleated Red Blood Cells % 0 %; Platelet Count 189 10^3/cmm (130-400); Red Cell Distribution Width 21.7 % (12.1-15.1); White Blood Count 10.5 10^3/uL (4.0-10.0)
[2020-08-28 04:42] LABS: INR 1.51 (0.8-1.2)
[2020-08-28] MEDS: thiamine 100 mg Tablet PO (05:04)
[2020-08-28] MEDS: tamsulosin 0.4 mg Capsule PO (05:05)
[2020-08-28] MEDS: potassium chloride ER 20 mEq Tablet PO (08:45)
[2020-08-28] MEDS: pantoprazole 40 mg SDV IVP (08:45)
[2020-08-28] MEDS: folic acid 1 mg Tablet PO (08:45)
[2020-08-28] MEDS: multivitamin therapeutic Tablet 1 TAB PO (08:45)
--- NOTE | 2020-08-28 11:54 | PM.DCS ---
Discharge Providers Date of Admission: 08/24/20 17:56 Date of Discharge: August 28, 2020 Attending Provider at Admission: Susan Hutson MD Attending Provider at Discharge: Susan Hutson MD Consults: None Primary Care Provider: Travis Tracy DO Diagnoses at Discharge Discharge Diagnosis (1) Upper gastrointestinal hemorrhage: Status: Acute Permanent problem details: -reports hematemesis, melanotic stool; no hematemesis here -has known grade C esophagitis, esophageal varices per endoscopy (06/2020) -VSS -s/p 1 unit of PRBCs (08/26) with Hg stable though not quite at his baseline of around 10 -PPI BID IV, off octreotide drip (2) Colitis: Status: Acute Permanent problem details: -noted evidence of mild circumferential wall thickening involving the cecum with pericecal inflammatory changes -continue dose of levaquin and metronidazole (day 5) -off IVF, good oral hydration -likely contributing to GI blood loss -noted leukocytosis, afebrile; WBC trending down -tolerating oral intake without difficulty (3) Gastric varices: Status: Chronic (4) Liver cirrhosis: Status: Chronic Permanent problem details: -still actively drinking EtOH -associated portal HTN -s/p 1 bag of FFPs (08/26) Qualifiers: Hepatic cirrhosis type: alcoholic cirrhosis Ascites presence: without ascites Qualified Code(s): K70.30 - Alcoholic cirrhosis of liver without ascites Other Information Additional DC diagnoses/information: -Morbid obesity: BMI-33 kg/m2 -BPH; on flomax -COPD, no longer oxygen dependent, CXR unremarkable, no acute exacerbation Reason for Visit Reason for Visit: GI BLEED/ HEMATEMESIS Hospital Course Hospital Course Patient was admitted to the medical surgical floor and started on broad-spectrum IV antibiotics secondary to clinical evidence of colitis. He was also started on octreotide and pantoprazole drips due to having presented with symptoms associated with GI bleeding including hematemesis and hematochezia. He is a chronic alcoholic and admits to recent increased alcohol consumption with a background of known gastritis and esophageal varices. Fortunately, during his hospital stay he has not had any further hematemesis but he has continued to have some blood in his stool which is likely secondary to colitis. He has required transfusion of 1 unit of PRBCs and 1 unit of FFP's. Hemoglobin is not quite at his baseline but has been stable. In light of acute colitis colonoscopy will have to be deferred to approximately 6 weeks after resolution of infection. Octreotide drip was discontinued once it was clear he had no further hematemesis and he was switched to IV pantoprazole. He would require continued close follow-up of his hemoglobin he has been strongly advised to abstain from alcohol as this will likely exacerbate bleeding risk. He will continue oral antibiotic therapy to complete his treatment course for colitis. If he continues to have further bleeding episodes he may require repeat endoscopic evaluation. He has been hemodynamically stable, on room air and afebrile consistently throughout his hospital stay. We will request close follow-up with his primary care provider to have repeat CBC done in the next 1 to 2 days. Patient is advised to seek medical attention immediately should he have any further bleeding episodes. Physical Exam Const: COMMON NORMALS: no acute distress, patient oriented x3 and alert GENERAL APPEARANCE: cooperative and comfortable NUTRITIONAL APPEARANCE: obese morbidly obese ORIENTATION/CONSCIOUSNESS: Yes awake OTHER: -ambulatory HENMT: COMMON NORMALS: normocephalic, atraumatic, hearing grossly normal bilaterally and moist oral mucous membranes HEAD & SCALP: normocephalic and atraumatic NOSE: Other nasal findings present (bulbous nose with notable tuft of hair) Eye: COMMON NORMALS: Equal, round and reactive pupils present, EOMs intact bilaterally and conjunctivae normal CONJUNCTIVA: Yes conjunctivae normal PUPIL: Yes Equal, round and reactive pupils present Neck/C-Spine: COMMON NORMALS: full ROM GENERAL: Yes normal visual inspection and Yes trachea midline Resp: COMMON NORMALS: normal respiratory effort, No retractions, No use of accessory muscles and clear to auscultation bilaterally EFFORT & INSPECTION: Yes able to speak in complete sentences, Yes symmetric chest movement and No tachypneic AUSCULTATION: clear to auscultation bilaterally OTHER: -on RA Cardio: COMMON NORMALS: regular rate, regular rhythm, S1 normal heart sound present, S2 normal heart sound present and No murmurs present (Cardio) RATE: regular rate RHYTHM: regular rhythm HEART SOUNDS: S1 normal heart sound present and S2 normal heart sound present GI: COMMON NORMALS: Normal to inspection, nondistended, normoactive bowel sounds present, Soft to palpation and non-tender INSPECTION: Yes central obesity PALPATION: Yes Soft to palpation Extremity: COMMON NORMALS: normal to inspection, full ROM and no clubbing, cyanosis or edema; negative for no pedal edema Neuro: COMMON NORMALS: patient oriented x3, moves all extremities, no focal motor deficits, no sensory deficits noted and gait normal SENSORIUM/ORIENTATION: Yes alert Psych: COMMON NORMALS: mental status grossly normal, Normal thought process present, cooperative, normal affect and speech normal SPEECH: Yes normal speech THOUGHT PROCESS: Normal thought process present Skin: COMMON NORMALS: no rashes or lesions noted, no jaundice, no petechiae and no mottling GENERAL SKIN EXAM: no rashes or lesions noted Discharge Data Data Completed and Pending: Completed Studies During Hospitalization Category Date Time Status CT abdomen pelvis w con* [id number] Stat Cat Scan 08/24/20 12:17 Completed XR chest 1V tarsha ble [id number] Urgent Exams 08/24/20 12:09 Completed Labs from last 24 hours 08/28/20 08/28/20 08/27/20 04:00 04:00 12:30 WBC 10.5 H RBC 2.80 L Hgb 7.6 L 8.0 L Hct 23.4 L 25.2 L MCV 83.6 MCH 27.1 L MCHC 32.5 RDW 21.7 H Plt Count 189 MPV 10.8 H Neut % (Auto) 59.9 Lymph % (Auto) 17.5 [place] % (Auto) 15.8 Eos % (Auto) 5.8 Baso % (Auto) 0.6 Neut # (Auto) 6.32 Lymph # (Auto) 1.8 [place] # (Auto) 1.7 H Eos # (Auto) 0.6 Baso # (Auto) 0.1 Nucleated RBC % (a uto) 0 Nucleated RBCs # 0.0 PT 18.70 H INR 1.51 H Vitals: Last Vital Signs Temp 98.3 F 08/28/20 11:08 Pulse 87 08/28/20 11:08 Resp 20 H 08/28/20 11:08 BP 102/66 08/28/20 11:08 Pulse Ox 96 08/28/20 11:08 Discharge Plan Discharge Patient Disposition: Home Condition: Stable Prescriptions: New metronidazole 500 mg tablet 500 mg PO Q8H 7 Days Qty: 21 RF: 0 levofloxacin 750 mg tablet 750 mg PO DAILY 7 Days Qty: 7 RF: 0 pantoprazole 40 mg tablet,delayed release (DR/EC) 40 mg PO Q12H 30 Days Qty: 60 RF: 0 Continued potassium chloride 20 mEq tablet extended release 20 meq PO BID Qty: 180 RF: 2 spironolactone 100 mg tablet 100 mg PO QAM Qty: 90 RF: 2 Centrum Silver Men 300-600-300 mcg Tablet 1 tab PO QAM RF: 0 tamsulosin 0.4 mg capsule 0.4 mg PO QAM RF: 0 Vitamin B-1 (mononitrate) 100 mg tablet 100 mg PO QAM RF: 0 Discharge Orders: Discharge Order (Routine); Ordered 08/28/20 Ordered By: Susan Hutson Referrals: Travis Tracy, [Primary Care Provider] - 1-3 days (Needs repeat CBC to continue to monitor his hemoglobin. ) Discharge Diet: Advance as tolerated Discharge Activity: Resume usual activity Activity Restrictions/Additional Instructions: -You are strongly advised to avoid alcohol due to bleeding risk -Please complete antibiotics as prescribed Discharge Attestations Time Spent in Discharge Care*: greater than 30 min Specific Discharge Activities: educating patient, educating and/or supporting family/caregiver (significant other Shonda), documenting/other paperwork and evaluating patient/reviewing data Status at Discharge: Cognitive status at discharge: cognitively intact, Behavioral status at discharge: cooperative, Functional status at discharge: independent ambulation Overall status at discharge: patient is progressing back to baseline Quality Metrics Clinical Quality Measures During this hospital stay, did patient experience: None Coding Level of Care Code Acute Spare Person for Silvia Llamasd Diagnoses Upper gastrointestinal hemorrhage K92.2 Colitis K52.9 Gastric varices I86.4 Liver cirrhosis K70.30 Hepatic cirrhosis type: alcoholic cirrhosis Ascites presence: without ascites
--- NOTE | 2020-08-28 15:03 | PC.NURSE ---
pt provided discharge teaching. pt verbalizes understanding of home medications, follow up appointment, and alcohol cessation. discussed symptoms of low hemoglobin and pt verbalizes understanding. pt states that his is on her way to pick him up.
--- NOTE | 2020-08-28 16:16 | PC.NURSE ---
pt taken to front entrance via w/c
== END 2020-08-28 16:21 | disposition home or self-care (01) | DRG 378 ==
LOC: ER 18:00 → MEDSURG 18:29
PROVIDERS: Admitting Provider Family Medicine; Emergency Provider Family Medicine; PCP Family Medicine; Visit Provider Family Medicine
DX: K92.2 Gastrointestinal hemorrhage, unspecified (principal); K76.6 Portal hypertension; K52.9 Noninfective gastroenteritis and colitis, unspecified; F10.20 Alcohol dependence, uncomplicated; M19.90 Unspecified osteoarthritis, unspecified site; J44.9 Chronic obstructive pulmonary disease, unspecified; I10 Essential (primary) hypertension; K70.30 Alcoholic cirrhosis of liver without ascites; G47.33 Obstructive sleep apnea (adult) (pediatric); Z96.643 Presence of artificial hip joint, bilateral; K20.90 Esophagitis, unspecified without bleeding; I85.10 Secondary esophageal varices without bleeding; E66.01 Morbid (severe) obesity due to excess calories; Z68.36 Body mass index [BMI] 36.0-36.9, adult; N40.0 Benign prostatic hyperplasia without lower urinary tract symptoms; D64.9 Anemia, unspecified
CPT/HCPCS: 12345; 36415; 36430; 71045; 74177; 80053; 80306; 80307; 81003; 83605; 83690; 85014; 85018; 85025; 85610; 86850; 86900; 86920; 86927; 93005; 99283; C9113; J1956; J2354; J7030; P9016; P9017; Q9967; S0030

== ENCOUNTER → 2020-08-31 10:20 | Outpatient (BNVA) | payer SELFPAY | PROVIDERS: PCP Family Medicine; Visit Provider Family Medicine | DX: K92.2 Gastrointestinal hemorrhage, unspecified (principal); I86.4 Gastric varices | CPT/HCPCS: 85025 ==

== ENCOUNTER → 2020-10-17 10:57 | Outpatient (BNVA) | payer SELFPAY | PROVIDERS: PCP Family Medicine; Visit Provider Family Medicine | DX: K92.2 Gastrointestinal hemorrhage, unspecified (principal); F19.10 Other psychoactive substance abuse, uncomplicated; M19.90 Unspecified osteoarthritis, unspecified site; M79.89 Other specified soft tissue disorders | CPT/HCPCS: 85025 ==

== ENCOUNTER → 2021-01-24 09:31 | Outpatient (BNVA) | payer SELFPAY | PROVIDERS: PCP Family Medicine; Visit Provider Family Medicine | DX: F19.10 Other psychoactive substance abuse, uncomplicated (principal); K92.2 Gastrointestinal hemorrhage, unspecified; M19.90 Unspecified osteoarthritis, unspecified site; Z86.79 Personal history of other diseases of the circulatory system | CPT/HCPCS: 85025 ==

== ENCOUNTER → 2022-03-28 13:18 | Outpatient (BNVA) | payer SELFPAY | PROVIDERS: PCP Family Medicine; Visit Provider Family Medicine | DX: K92.2 Gastrointestinal hemorrhage, unspecified (principal); I86.4 Gastric varices; F19.10 Other psychoactive substance abuse, uncomplicated; K70.30 Alcoholic cirrhosis of liver without ascites; J44.9 Chronic obstructive pulmonary disease, unspecified; M79.89 Other specified soft tissue disorders; M19.90 Unspecified osteoarthritis, unspecified site | CPT/HCPCS: 80053; 85025 ==

== ENCOUNTER → 2022-05-09 09:32 | Outpatient (BNVA) | payer SELFPAY | PROVIDERS: PCP Family Medicine; Visit Provider Family Medicine | DX: I10 Essential (primary) hypertension (principal); N40.0 Benign prostatic hyperplasia without lower urinary tract symptoms | CPT/HCPCS: 80053; 80061; 84153 ==

== ENCOUNTER → 2022-10-14 11:05 | Outpatient (BNVA) | payer SELFPAY | PROVIDERS: PCP Family Medicine; Visit Provider Family Medicine | DX: L03.019 Cellulitis of unspecified finger (principal); R63.5 Abnormal weight gain | CPT/HCPCS: 73140; 82962; 85025 ==

== ENCOUNTER → 2022-10-18 07:59 | Outpatient (BNVA) | payer MEDICARE, SELFPAY | PROVIDERS: PCP Family Medicine; Visit Provider Thoracic Surgery (Cardiothoracic Vascular Surgery) | DX: L98.9 Disorder of the skin and subcutaneous tissue, unspecified (principal); L03.011 Cellulitis of right finger; I96 Gangrene, not elsewhere classified | CPT/HCPCS: 88304; 97597; 99213 ==

== ENCOUNTER → 2022-10-25 08:31 | Outpatient (BNVA) | payer MEDICARE, SELFPAY | PROVIDERS: PCP Family Medicine; Visit Provider Thoracic Surgery (Cardiothoracic Vascular Surgery) | DX: L98.9 Disorder of the skin and subcutaneous tissue, unspecified (principal); L98.492 Non-pressure chronic ulcer of skin of other sites with fat layer exposed | CPT/HCPCS: 97597 ==

== ENCOUNTER → 2022-11-01 08:42 | Outpatient (BNVA) | payer MEDICARE, SELFPAY | PROVIDERS: PCP Family Medicine; Visit Provider Thoracic Surgery (Cardiothoracic Vascular Surgery) | DX: L98.9 Disorder of the skin and subcutaneous tissue, unspecified (principal); I96 Gangrene, not elsewhere classified | CPT/HCPCS: 99213 ==

== ENCOUNTER → 2022-11-15 08:58 | Outpatient (BNVA) | payer MEDICARE, SELFPAY | PROVIDERS: PCP Family Medicine; Visit Provider Thoracic Surgery (Cardiothoracic Vascular Surgery) | DX: I96 Gangrene, not elsewhere classified (principal); L98.492 Non-pressure chronic ulcer of skin of other sites with fat layer exposed; L98.9 Disorder of the skin and subcutaneous tissue, unspecified | CPT/HCPCS: 97597 ==

== ENCOUNTER → 2022-11-22 08:39 | Outpatient (BNVA) | payer MEDICARE, SELFPAY | PROVIDERS: PCP Family Medicine; Visit Provider Thoracic Surgery (Cardiothoracic Vascular Surgery) | DX: I96 Gangrene, not elsewhere classified (principal); L98.492 Non-pressure chronic ulcer of skin of other sites with fat layer exposed | CPT/HCPCS: 97597 ==

== ENCOUNTER 2022-11-28 12:30 | Outpatient (CLI) | payer MEDICARE, SELFPAY ==
--- NOTE | 2022-11-28 12:45 | USCV_ITS ---
Renaldo Michel Age: 62 Gender: M : 1960 Exam Date: 11/28/2022 13:04 Ordering Phys: Dylan Mccormick MD (Andy) ([email or web address]) Technologist: Exam Location: [facility] [place] Indication: sob pedal edema BP: 130 / 74 HR: 90 Rhythm: Sinus Technical Quality: MEASUREMENTS (Male / Female) Normal Values 2D ECHO LV Diastolic Diameter PLAX 4.8 cm 4.2 - 5.9 / 3.9 - 5.3 cm LV Systolic Diameter PLAX 2.7 cm IVS Diastolic Thickness 1.7 cm 0.6 - 1.0 / 0.6 - 0.9 cm IVS Systolic Thickness 1.5 cm LVPW Diastolic Thickness 1.3 cm 0.6 - 1.0 / 0.6 - 0.9 cm LVPW Systolic Thickness 1.4 cm LVOT Diameter 2.0 cm LV Ejection Fraction 2D Teich 73.5 % LV Ejection Fraction MOD 2C 64.0 % LV Ejection Fraction 2C AL 63.9 % LA Diameter 4.3 cm Aorta at Sinotubular Diameter 2.8 cm M-MODE Aortic Annulus Diameter 3.7 cm LA Ao Ratio MM 1.1 MV E Point Septal Separation 0.9 cm DOPPLER AV Peak Velocity 127.0 cm/s LVOT Peak Velocity 79.0 cm/s AV Area Cont Eq vti 1.9 cm squared AV Area Cont Eq pk 2.0 cm squared MV Area PHT 5.0 cm squared Mitral E to A Ratio 0.7 MV E' Velocity 26.5 cm/s Mitral E to MV E' Ratio 7.8 Mitral E to LV E' Lateral Ratio 8.3 Mitral E to LV E' Septal Ratio 7.6 TR Peak Velocity 146.5 cm/s TR Peak Gradient 8.6 mmHg TV Peak E Velocity 56.0 cm/s Right Atrial Pressure 3.0 mmHg Pulmonary Artery Systolic Pressu 11.6 mmHg RV Acceleration Time 0.1 s FINDINGS Left Ventricle Left ventricle is normal in size. LV systolic function is mildly reduced with EF of 45 to 50%. Mild global hypokinesis seen. Grade 1 disatolic dysfunction Right Ventricle Normal in size and function Right Atrium Normal in size Left Atrium Normal in size Mitral Valve Grossly normal Aortic Valve Grossly thickened. No significant stenosis or regurgitation seen. Tricuspid Valve Not well visualized Pulmonic Valve Not well visualized Pericardium Normal Aorta Normal in size IVC Not well visualized CONCLUSIONS Technically difficult study because of poor ultrasonic windows. LV systolic function is mildly reduced with EF of 45 to 50%. Mild global hypokinesis noted Grade 1 diastolic dysfunction Valvular structures are not well-visualized. However no gross abnormalities Compared to prior echocardiogram from 2016, LV systolic function has decreased now. Zen Godwin MD (Electronically Signed) Final Date: 12 December 2022 12:18 S
== END 2022-11-28 12:31 | disposition home or self-care (01) ==
LOC: RAD 12:36
PROVIDERS: PCP Family Medicine; Visit Provider Thoracic Surgery (Cardiothoracic Vascular Surgery)
DX: I74.4 Embolism and thrombosis of arteries of extremities, unspecified (principal)
CPT/HCPCS: 93306

== ENCOUNTER → 2022-11-29 08:41 | Outpatient (BNVA) | payer SELFPAY | PROVIDERS: PCP Family Medicine; Visit Provider Thoracic Surgery (Cardiothoracic Vascular Surgery) | DX: I96 Gangrene, not elsewhere classified (principal); L98.492 Non-pressure chronic ulcer of skin of other sites with fat layer exposed | CPT/HCPCS: 97597; C1785 ==

== ENCOUNTER → 2022-12-06 09:19 | Outpatient (BNVA) | payer SELFPAY | PROVIDERS: PCP Family Medicine; Visit Provider Thoracic Surgery (Cardiothoracic Vascular Surgery) | DX: L98.492 Non-pressure chronic ulcer of skin of other sites with fat layer exposed (principal) | CPT/HCPCS: 97597 ==

== ENCOUNTER → 2022-12-20 08:50 | Outpatient (BNVA) | payer SELFPAY | PROVIDERS: PCP Family Medicine; Visit Provider Nurse Practitioner Family | DX: I73.9 Peripheral vascular disease, unspecified (principal); L98.492 Non-pressure chronic ulcer of skin of other sites with fat layer exposed | CPT/HCPCS: 97597 ==

== ENCOUNTER → 2022-12-27 09:14 | Outpatient (BNVA) | payer SELFPAY | PROVIDERS: PCP Family Medicine; Visit Provider Thoracic Surgery (Cardiothoracic Vascular Surgery) | DX: Z09 Encounter for follow-up examination after completed treatment for conditions other than malignant neoplasm (principal); Z87.898 Personal history of other specified conditions | CPT/HCPCS: 99212 ==